=== PATIENT | male | born 1975 | race Caucasian/White ===

== ENCOUNTER → 2017-11-19 12:42 | Outpatient (CLI) | payer MEDICAID, SELFPAY ==
[2017-11-19 13:00] LABS: Basophils # 0.1 K/mm3 (0-0.2); Basophils % 0.5 % (0.1-2.0); Eosinophils # 0.2 K/mm3 (0.0-0.4); Eosinophils % 2.2 % (0.1-12.0); Hematocrit 53.1 % (42.0-52.0); Hemoglobin 17.9 g/dL (14.1-18.0); Lymphocytes # 3.6 K/mm3 (0.7-4.5); Lymphocytes % 37.2 K/mm3 (10-50); Mean Corpuscular HGB Conc 33.7 g/dL (31.8-35.4); Mean Corpuscular Hemoglobin 32.8 pg (27.0-31.2); Mean Corpuscular Volume 97.3 fl (80-94); Mean Platelet Volume 7.7 fl (7.4-10.4); Monocytes # 0.7 K/mm3 (0.1-1.0); Monocytes % 6.7 % (1.7-9.3); Neutrophils # 5.2 K/mm3 (1.8-7.8); Neutrophils % 53.4 % (37.0-80.0); Platelet Count 223 K/mm3 (142-424); Red Blood Count 5.46 M/mm3 (4.60-6.20); Red Cell Distribution Width 13.4 % (11.5-17.5); White Blood Count 9.8 K/mm3 (4.8-10.8)
[2017-11-19 13:18] LABS: Alanine Aminotransferase 75 U/L (12-78); Albumin Level 4.2 gm/dL (3.4-5.0); Albumin/Globulin Ratio 1.1 (1.1-1.8); Alkaline Phosphatase 55 U/L (46-116); Anion Gap 10.5 mEq/L (5-15); Aspartate Amino Transferase 28 U/L (15-37); Bilirubin,Total 0.4 mg/dL (0.2-1.0); Blood Urea Nitrogen 16 mg/dL (7-18); Carbon Dioxide 31 mmol/L (21.0-32.0); Chloride 105 mmol/L (98-107); Creatinine,Serum 1.15 mg/dL (0.70-1.30); Estimated Glomerular Filt Rate 70 ml/min (>60); GFR (African American) 85 ML/MIN (>60); Globulin 3.7 gm/dl (1.3-3.2); Glucose 96 mg/dL (74-106); Magnesium 1.7 mg/dL (1.4-2.2); Potassium 4.5 mmoL/L (3.5-5.1); Sodium 142 mmol/L (136-145); Thyroid Stimulating Hormone 2.92 uIU/ml (0.358-3.740); Total Protein,Serum 7.9 gm/dL (6.4-8.2)
== END ==
PROVIDERS: Visit Provider Internal Medicine Adolescent Medicine
DX: R55 Syncope and collapse (principal)
CPT/HCPCS: 36415; 80053; 83735; 84443; 85025

== ENCOUNTER → 2017-12-02 08:31 | Outpatient (CLI) | payer MEDICAID, SELFPAY ==
--- NOTE | 2017-12-02 08:37 | MR_ITS ---
MR head/brain wo con HISTORY: Severe headache, syncope, at the C dizziness and blurred vision ITS.REASON: SYNCOPE AND COLLAPSE, BAD HEADACHE ORDERING PHYSICIAN: Mariusz Saucedo MD PATIENT AGE: 42 years TECHNIQUE: Standard multiplanar multiecho sequences are performed without contrast. FINDINGS: No midline shift, mass effect, intracranial hemorrhage, hydrocephalus, or acute infarction. No restricted diffusion. The cerebellopontine angles, cerebellum, and brainstem are unremarkable. There are scant T2 white matter hyperintensities nonspecific. The hippocampal gyri have an unremarkable appearance in the temporal horns are symmetric. No mastoid effusion or sinus air-fluid level. There is mucosal thickening in the left frontal sinus. The pituitary optic chiasm and corpus callosum are unremarkable no cerebellar ectopia. IMPRESSION: 1. No acute intracranial finding. Scant T2 white matter hyperintensities nonspecific 2. Left frontal sinus disease
--- NOTE | 2017-12-02 09:15 | XR_ITS ---
XR orbit bilateral min 4V HISTORY: History of metallic foreign body in the eyes. Clearance for MRI needed ITS.REASON: RULE OUT FOREIGN BODY FOR MRI ORDERING PHYSICIAN: Mariusz Saucedo MD PATIENT AGE: 42 years TECHNIQUE: AP views are obtained of the orbits with the patient looking up and down COMPARISON: FINDINGS: No radio opaque foreign bodies evident. IMPRESSION: No radio opaque orbital foreign body identified
== END ==
PROVIDERS: Family Provider Internal Medicine Adolescent Medicine; PCP Internal Medicine Adolescent Medicine; Visit Provider Internal Medicine Adolescent Medicine
DX: R55 Syncope and collapse (principal); R51 Headache
CPT/HCPCS: 70200; 70551; 95816

== ENCOUNTER → 2017-12-09 08:28 | Outpatient (CLI) | payer MEDICAID, SELFPAY | PROVIDERS: PCP Internal Medicine Adolescent Medicine; Visit Provider Internal Medicine Adolescent Medicine | DX: G47.30 Sleep apnea, unspecified (principal) | CPT/HCPCS: 95806 ==

== ENCOUNTER → 2018-04-19 10:38 | Outpatient (CLI) | payer MEDICAID, SELFPAY ==
[2018-04-19 11:52] LABS: Anion Gap 11.3 mEq/L (5-15); Blood Urea Nitrogen 11 mg/dL (7-18); Calcium 8.9 mg/dL (8.5-10.1); Carbon Dioxide 30 mmol/L (21.0-32.0); Chloride 105 mmol/L (98-107); Creatinine,Serum 1.12 mg/dL (0.70-1.30); Estimated Glomerular Filt Rate 73 ml/min (>60); GFR (African American) 88 ML/MIN (>60); Glucose 107 mg/dL (74-106); Potassium 4.3 mmoL/L (3.5-5.1); Sodium 142 mmol/L (136-145)
== END ==
PROVIDERS: PCP Internal Medicine Adolescent Medicine; Visit Provider Internal Medicine Adolescent Medicine
DX: I10 Essential (primary) hypertension (principal)
CPT/HCPCS: 36415; 80048

== ENCOUNTER → 2018-06-01 19:49 | Outpatient (CLI) | payer MEDICAID, SELFPAY ==
--- NOTE | 2018-06-01 19:51 | XR_ITS ---
XR wrist RT min 3V HISTORY ITS.REASON: right wrist pain ORDERING PHYSICIAN: Ulysses Diggs MD PATIENT AGE: 42 years Comparison: None FINDINGS: No acute fracture or dislocation is evident. There is a small calcific density at the distal aspect of the ulna and may be related to an old ulnar styloid process avulsion fracture. This was present on 08/14/2014. Otherwise negative. IMPRESSION: No acute finding. Suspect old fracture of the ulnar styloid process
--- NOTE | 2018-06-01 19:51 | XR_ITS ---
XR wrist LT min 3V HISTORY ITS.REASON: left wrist pain ORDERING PHYSICIAN: Ulysses Diggs MD PATIENT AGE: 42 years Comparison: None FINDINGS: No fracture or dislocation. No lytic or blastic change. There is normal mineralization.. The joint spaces are well-preserved. No significant degenerative/arthritic changes. No erosive changes evident.. IMPRESSION: Negative wrist
== END ==
PROVIDERS: PCP Internal Medicine Adolescent Medicine; Visit Provider Orthopaedic Surgery
DX: M25.532 Pain in left wrist (principal); M25.531 Pain in right wrist
CPT/HCPCS: 73110

== ENCOUNTER → 2018-07-07 09:57 | Outpatient (CLI) | payer MEDICAID, SELFPAY ==
--- NOTE | 2018-07-07 10:11 | XR_ITS ---
XR chest 2V HISTORY: ITS.REASON: COUGH,ANOREXIA ORDERING PHYSICIAN: Mariusz Saucedo MD PATIENT AGE: 42 years COMPARISON: 07/25/2014 FINDINGS: The cardiomediastinal silhouette and pulmonary vascularity are within normal limits. The lungs are clear without infiltrates, suspicious nodules, or pleural effusions. No acute bony abnormalities. IMPRESSION: Negative chest, no acute finding
[2018-07-07 11:36] LABS: Basophils # 0.1 K/mm3 (0-0.2); Basophils % 0.5 % (0.1-2.0); Eosinophils # 0.2 K/mm3 (0.0-0.4); Eosinophils % 2.3 % (0.1-12.0); Hematocrit 49.8 % (42.0-52.0); Hemoglobin 16.4 g/dL (14.1-18.0); Lymphocytes # 3.4 K/mm3 (0.7-4.5); Lymphocytes % 32.3 % (10-50); Mean Corpuscular Hemoglobin 31.6 pg (27.0-31.2); Mean Corpuscular Volume 95.6 fl (80-94); Mean Platelet Volume 7.5 fl (7.4-10.4); Monocytes # 0.7 K/mm3 (0.1-1.0); Neutrophils % 57.9 % (37.0-80.0); Platelet Count 226 K/mm3 (142-424); Red Blood Count 5.21 M/mm3 (4.60-6.20); Red Cell Distribution Width 13.5 % (11.5-17.5); White Blood Count 10.4 K/mm3 (4.8-10.8)
[2018-07-07 13:12] LABS: Alanine Aminotransferase 26 U/L (12-78); Albumin Level 3.9 gm/dL (3.4-5.0); Albumin/Globulin Ratio 1.3 (1.1-1.8); Alkaline Phosphatase 48 U/L (46-116); Anion Gap 13.6 mEq/L (5-15); Aspartate Amino Transferase 13 U/L (15-37); Bilirubin,Total 0.3 mg/dL (0.2-1.0); Blood Urea Nitrogen 16 mg/dL (7-18); Calcium 9.1 mg/dL (8.5-10.1); Carbon Dioxide 31 mmol/L (21.0-32.0); Chloride 103 mmol/L (98-107); Creatinine,Serum 0.94 mg/dL (0.70-1.30); Estimated Glomerular Filt Rate 89 ml/min (>60); Free Thyroxine Index 2.9 ug/dL (5.93-13.13); GFR (African American) 108 ML/MIN (>60); Globulin 3.1 gm/dl (1.3-3.2); Glucose 109 mg/dL (74-106); Potassium 4.6 mmoL/L (3.5-5.1); Sodium 143 mmol/L (136-145); T4 (Thyroxine) 9.2 ug/dl (4.7-13.3); Thyroid Stimulating Hormone 1.25 uIU/ml (0.358-3.740); Triiodothryronine (T3) Uptake 32 % (31-39)
== END ==
PROVIDERS: PCP Internal Medicine Adolescent Medicine; Visit Provider Internal Medicine Adolescent Medicine
DX: R05 Cough (principal); R63.0 Anorexia
CPT/HCPCS: 36415; 71046; 80053; 84436; 84443; 84479; 85025

== ENCOUNTER → 2018-08-30 10:02 | Outpatient (CLI) | payer MEDICAID, SELFPAY ==
[2018-08-30 10:21] LABS: Blood Urea Nitrogen 9 mg/dL (7-18); Calcium 8.5 mg/dL (8.5-10.1); Carbon Dioxide 29 mmol/L (21.0-32.0); Chloride 102 mmol/L (98-107); Creatinine,Serum 1.08 mg/dL (0.70-1.30); Estimated Glomerular Filt Rate 76 ml/min (>60); GFR (African American) 92 ML/MIN (>60); Glucose 110 mg/dL (74-106); Sodium 139 mmol/L (136-145)
--- NOTE | 2018-08-30 12:54 | CT_ITS ---
CT abdomen pelvis wo con CLINICAL INDICATION: Hematuria with bilateral flank pain ITS.REASON: HEMATURIA ORDERING PHYSICIAN: Alexandr Holguin MD PATIENT AGE: 42 years COMPARISON: None TECHNIQUE: Axial images obtained with sagittal and coronal reformats. All CT scans at the facility use one or more dose reduction, viz: automated exposure control, ma/kV adjustment per patient size (including targeted exams where dose is matched to indication, i.e. head), or iterative reconstruction technique. PROCEDURE: Oral Contrast: None IV Contrast: None . FINDINGS: Lung bases are clear. There is a small area of focal fatty infiltration involving the falciform ligament region of the liver. Liver is otherwise unremarkable. The spleen, adrenal glands, pancreas, kidneys, and ureters have an unremarkable appearance. No renal or ureteral calculi or hydronephrosis. No evidence of appendicitis, intestinal obstruction, free air, or diverticulitis. Urinary bladder wall is slightly thickened. This is nonspecific and could be due to nondistention or mild cystitis. No pelvic mass or abnormal fluid collection or focal inflammatory change of the pelvis. No acute bony anomalies. IMPRESSION: 1. Mild thickening in the urinary bladder which could be due to nondistention or cystitis. 2. Otherwise negative CT abdomen pelvis without contrast. No renal or ureteral calculi or hydronephrosis is evident
== END ==
PROVIDERS: Visit Provider Internal Medicine Adolescent Medicine
DX: R31.9 Hematuria, unspecified (principal)
CPT/HCPCS: 36415; 74176; 80048

== ENCOUNTER → 2018-12-20 09:43 | Outpatient (CLI) | payer MEDICAID, SELFPAY ==
--- NOTE | 2018-12-20 09:44 | FL_ITS ---
EXAM: Barium swallow/esophagram. INDICATION: ITS.REASON: dysphagia ORDERING PHYSICIAN: Jeramy Galeas MD PATIENT AGE: 43 years COMPARISON: None TECHNIQUE: In the upright position the patient was observed to swallow barium in both the AP and lateral view. The cervical esophagus was examined under fluoroscopy with images obtained. The patient was then placed prone in the right anterior oblique position and was observed to swallow barium with Valsalva technique . FLUOROSCOPY TIME: 58 seconds FINDINGS: There was no evidence of aspiration. There was normal peristalsis. No filling defects or mucosal abnormalities. No masses or strictures. No hiatal hernia IMPRESSION: Negative barium swallow.
== END ==
PROVIDERS: PCP Internal Medicine Adolescent Medicine; Visit Provider Surgery
DX: R13.14 Dysphagia, pharyngoesophageal phase (principal)
CPT/HCPCS: 74220

== ENCOUNTER → 2019-01-30 12:39 | Outpatient (CLI) | payer MEDICAID, SELFPAY ==
--- NOTE | 2019-01-30 12:41 | FL_ITS ---
FL barium swallow modified: 01/30/2019 12:41 PM CLINICAL HISTORY: Weight loss ORDERING PHYSICIAN: Jeramy Galeas MD PATIENT AGE: 43 years Comparison: None TECHNIQUE: Patient administered varying consistencies of barium contrast, while viewed in lateral position under real-time fluoroscopy with cine recording. FLUOROSCOPY TIME: 1 minute and 57 seconds The study was performed in conjunction with speech pathologist. Please see that report & recommendations. FINDINGS: Patient was given varying consistencies of barium. No abnormality in swallowing mechanism noted IMPRESSION: Unremarkable modified barium swallow Please see speech pathologist report and recommendations.
--- NOTE | 2019-01-30 13:56 | HMH.SLMBS2 ---
Speech & Language Evaluation Speech/Language Mod Barium Swallow Start: 01/30/19 13:35 Freq: once Status: Complete Protocol: Document 01/30/19 13:35 WENDY (Rec: 01/30/19 13:56 WENDY [id number]) MBS Recommendations Diet Dietary Recommendations Regular,Mechanical Soft,Thin Liquids Treatment/Strategies Strategy/Precaution Recommend Alternate Liquids/Solids Referrals/Other Recommended Referrals GI Consult,Dental Evaluation, Dietary Consult,ENT Consult Other Recommendations Recommend referral to psychological services specializing in eating disorder and aversion to food. Mod Barium Swallow Impressions Summary and Impressions Oral Phase Impression Minimal Impairment Oral Phase Summary No Teeth Pharyngeal Phase Impression No Impairment (WFL) Speech/Language MBS Assessment/Goals/Plan Assessment Date of Evaluation: 01/30/19 Evaluation Type Initial Certification Assessment/Problems Patient reports major weight loss and aversion to food. He reports the sensation that food is stuck in his throat. Does Patient Qualify for Service No Qualify/Failure Comment No aspiration or penetration was observed in MBS. All structure and function were within functional limits. Recommendations PHYSICIAN CERTIFICATION: The specified therapy services are required, authorized, and reviewed every 30 days. Diet Recommendations Normal Liquid Type Recommendations Normal/Thin SL Swallow Guidelines Standard Aspiration Prec. Dysphagia Swallow Precautions/Strategies Sitting Upright (90 deg), Alternate Liquids/Solids Additional Consults Recommended Nutritional Consult Comment Recommend referral to psychological services that specialize in anxiety and eating disorders. Plan Pt/Guardian verbally ack understanding Yes of dx/prognosis/goals Pt/Guardian verbally ack understanding Yes of/consent to tx prog G -code Required No Education Instructions provided Patient informed of MBS results and strategy of alternating bites and sips. Pt/Caregiver able to recall information Able to recall/restate Reinforcement needed No Mod Barium Swallow Setup Exam Setup Radiologist Guillermo Smith Level of Consciousness Awake,Alert,Appropriate Position (degrees) 90 Mod Barium Swallo
== END ==
PROVIDERS: PCP Internal Medicine Adolescent Medicine; Visit Provider Surgery
DX: R13.10 Dysphagia, unspecified (principal)
CPT/HCPCS: 70371; 92611

== ENCOUNTER → 2019-05-03 10:17 | Outpatient (CLI) | payer MEDICAID, SELFPAY ==
[2019-05-03 10:57] LABS: Basophils # 0.1 K/mm3 (0-0.2); Basophils % 0.6 % (0.1-2.0); Eosinophils # 0.3 K/mm3 (0.0-0.4); Eosinophils % 2.2 % (0.1-12.0); Hematocrit 51.4 % (42.0-52.0); Hemoglobin 17.3 g/dL (14.1-18.0); Lymphocytes # 3.7 K/mm3 (0.7-4.5); Lymphocytes % 30.3 % (10-50); Mean Corpuscular HGB Conc 33.6 g/dL (31.8-35.4); Mean Corpuscular Hemoglobin 32.9 pg (27.0-31.2); Mean Corpuscular Volume 97.9 fl (80-94); Mean Platelet Volume 7.3 fl (7.4-10.4); Monocytes # 0.9 K/mm3 (0.1-1.0); Monocytes % 7.2 % (1.7-9.3); Neutrophils # 7.3 K/mm3 (1.8-7.8); Neutrophils % 59.7 % (37.0-80.0); Platelet Count 234 K/mm3 (142-424); Red Blood Count 5.25 M/mm3 (4.60-6.20); Red Cell Distribution Width 13.3 % (11.5-17.5); White Blood Count 12.2 K/mm3 (4.8-10.8)
[2019-05-03 12:28] LABS: Alanine Aminotransferase 21 U/L (12-78); Albumin Level 4.1 gm/dL (3.4-5.0); Albumin/Globulin Ratio 1.3 (1.1-1.8); Alkaline Phosphatase 42 U/L (46-116); Anion Gap 13.6 mEq/L (5-15); Aspartate Amino Transferase 14 U/L (15-37); Bilirubin,Total 0.3 mg/dL (0.2-1.0); Blood Urea Nitrogen 16 mg/dL (7-18); Calcium 8.9 mg/dL (8.5-10.1); Carbon Dioxide 28 mmol/L (21.0-32.0); Chloride 105 mmol/L (98-107); Creatinine,Serum 0.89 mg/dL (0.70-1.30); Estimated Glomerular Filt Rate 94 ml/min (>60); GFR (African American) 114 ML/MIN (>60); Globulin 3.1 gm/dl (1.3-3.2); Glucose 98 mg/dL (74-106); Potassium 4.6 mmoL/L (3.5-5.1); Sodium 142 mmol/L (136-145); Thyroid Stimulating Hormone 2.03 uIU/ml (0.358-3.740); Total Protein,Serum 7.2 gm/dL (6.4-8.2)
[2019-05-04 07:20] LABS: Vitamin B12 1523 pg/mL (232-1245)
== END ==
PROVIDERS: Visit Provider Internal Medicine Adolescent Medicine
DX: G60.9 Hereditary and idiopathic neuropathy, unspecified (principal); E53.8 Deficiency of other specified B group vitamins
CPT/HCPCS: 36415; 80053; 82607; 84443; 85025

== ENCOUNTER → 2019-06-27 13:19 | Outpatient (CLI) | payer BC, SELFPAY ==
--- NOTE | 2019-06-27 13:27 | XR_ITS ---
PROCEDURE: XR WRIST LT MIN 3V CLINICAL INDICATION: CARPAL TUNNER SYNDROME The COMPARISON: WRISTCMLT XR wrist LT min 3V from 06/01/2018 WRISTCMRT XR wrist RT min 3V from 06/01/2018 FINDINGS: No fracture, dislocation, lytic change, or blastic change evident. No significant degenerative change IMPRESSION: No acute findings. Dictated by: Guillermo Smith MD 06/27/2019 14:01 Electronically signed by Guillermo Smith MD in [place] 06/27/2019 14:01
--- NOTE | 2019-06-27 13:27 | XR_ITS ---
PROCEDURE: XR WRIST RT MIN 3V CLINICAL INDICATION: CARPAL TUNNER SYNDROME Pain COMPARISON: WRISTCMLT XR wrist LT min 3V from 06/01/2018 WRISTCMRT XR wrist RT min 3V from 06/01/2018 FINDINGS: No fracture or dislocation. No significant degenerative change. There is a small well-circumscribed calcific density medial to the triquetrum not significantly changed. IMPRESSION: No change with no acute finding Dictated by: Guillermo Smith MD 06/27/2019 13:57 Electronically signed by Guillermo Smith MD in [place] 06/27/2019 13:57
== END ==
PROVIDERS: PCP Internal Medicine Adolescent Medicine; Visit Provider Plastic Surgery Surgery of the Hand
DX: G56.00 Carpal tunnel syndrome, unspecified upper limb (principal)
CPT/HCPCS: 73110

== ENCOUNTER → 2019-07-23 16:08 | Outpatient (CLI) | payer BC, SELFPAY ==
--- NOTE | 2019-07-23 16:17 | XR_ITS ---
PROCEDURE: XR ORBIT BILATERAL MIN 4V CLINICAL INDICATION: R/O FOREIGN BODY IN EYE, patient scheduled for MRI exam this coming week, previous history of possible metallic foreign body COMPARISON: Multiple view show the orbital rims and orbital floors are intact. The paranasal sinuses appear clear. There are no metallic bodies seen within the orbits or in the adjacent soft tissues of the face or scalp. FINDINGS: Negative for foreign body IMPRESSION: No acute findings. Dictated by: Dr. Nikolai Suero MD 07/23/2019 17:[address] Nikolai Suero MD in [place] 07/23/2019 17:50
== END ==
PROVIDERS: PCP Internal Medicine Adolescent Medicine; Visit Provider Plastic Surgery Surgery of the Hand
DX: T15.90XA Foreign body on external eye, part unspecified, unspecified eye, initial encounter (principal)
CPT/HCPCS: 70200

== ENCOUNTER → 2019-07-25 14:04 | Outpatient (CLI) | payer BC, SELFPAY ==
--- NOTE | 2019-07-25 14:13 | MR_ITS ---
PROCEDURE: MR WRIST RT WO CON CLINICAL INDICATION: CUBITAL TUNNEL SYNDROME, BILATERAL, TFCC TEAR COMPARISON: No exams were available for comparison TECHNIQUE: Routine multiplanar multi echo sequences are performed without gadolinium enhancement. FINDINGS: Examination of the triangular fibrocartilage is very limited without intra-articular contrast. The central aspect of the TFC and fovea component are unremarkable. The the ulnar styloid attachment of the TFC is not identified and could be torn. There is a small amount of bone marrow edema involving the distal aspect of the ulna laterally at the distal radial ulnar joint. Small amount fluid is present along the proximal aspect of the DRUJ. The ulnar styloid process has more of a dorsal location with the extensor carpi ulnaris tendon located more dorsally and normal. No fracture or dislocation. IMPRESSION: 1. There is a small amount edema at the distal aspect of the ulna along its radial and dorsal aspect with minimal amount of fluid in the distal radial ulnar joint. 2. Evaluation of the triangular fibrocartilage is limited without direct or even indirect arthrography. The ulnar styloid attachment is not identified and may be torn. Consider follow-up exam with thin sections with at least indirect arthrography for confirmation. Imaging on 3 T unit would also be more desirable. Dictated by: Guillermo Smith MD 07/29/2019 09:27 Electronically signed by Guillermo Smith MD in [place] 08/01/2019 07:03
== END ==
PROVIDERS: PCP Internal Medicine Adolescent Medicine; Visit Provider Plastic Surgery Surgery of the Hand
DX: G56.23 Lesion of ulnar nerve, bilateral upper limbs (principal)
CPT/HCPCS: 73221

== ENCOUNTER → 2019-09-13 14:25 | Outpatient (CLI) | payer BC, SELFPAY ==
--- NOTE | 2019-09-13 14:33 | MR_ITS ---
PROCEDURE: MR CERVICAL SPINE WO CON CLINICAL INDICATION: CERVICAL AND THORACIC NEURALGIA COMPARISON: No exams were available for comparison TECHNIQUE: Standard multiplanar multiecho sequences are performed without contrast. 3-D MIP and myelographic images are also rendered and reviewed FINDINGS: Cervical vertebrae are of normal height and alignment. There is no malignant bone marrow signal. Cerebellar tonsils are in anatomic position. At C3-4 there is disc osteophyte complex with broad-based disc extrusion. There is moderate extrinsic mass compression of the thecal sac with central spinal canal stenosis and there is spinal cord contour deformity/compression. Foraminal stenoses left greater than right are also noted. No spinal cord signal abnormality is apparent. At C5-6 broad-based disc bulge is noted with mild convex extrinsic mass effect on the thecal sac. No central canal or foraminal stenosis is apparent. Remaining disc spaces have a normal appearance. IMPRESSION: High-grade central spinal canal stenosis with spinal cord compression due to large disc extrusion and C3 osteophyte at C3-4. Dictated by: Papa Mckeon 09/13/2019 16:20 Electronically signed by Papa Mckeon in [place] 09/13/2019 16:20
--- NOTE | 2019-09-13 14:33 | MR_ITS ---
PROCEDURE: MR THORACIC SPINE WO CON CLINICAL INDICATION: CERVICAL AND THORACIC NEURALGIA COMPARISON: No exams were available for comparison TECHNIQUE: Routine multiplanar multisequence exam FINDINGS: There is no acute fracture or dislocation. A sub centimeter benign appearing lipoma is noted T5. No malignant bone marrow signal is apparent. At T3-4 a small left paracentral disc herniation is noted causing mild convex extrinsic mass effect on the thecal sac. At T4-5 a left central disc herniation is noted causing convex mass effect on the thecal sac. At T5-6 moderate sized central disc herniation is noted appearing to contact the spinal cord. There is some spinal cord contour deformity without entrapment. At T8-9 a right paracentral disc herniation is noted appearing to contact the spinal cord. Remaining disc spaces have a normal appearance. No intrinsic spinal cord abnormality is apparent. IMPRESSION: Multilevel degenerative disc disease as described with disc herniations largest one at T5-6. Dictated by: Papa Mckeon 09/13/2019 16:29 Electronically signed by Papa Mckeon in [place] 09/13/2019 16:29
== END ==
PROVIDERS: PCP Internal Medicine Adolescent Medicine; Visit Provider Internal Medicine Adolescent Medicine
DX: M54.12 Radiculopathy, cervical region (principal); M79.2 Neuralgia and neuritis, unspecified
CPT/HCPCS: 72141; 72146; 76376

== ENCOUNTER → 2019-10-13 09:20 | Outpatient (CLI) | payer BC, SELFPAY ==
--- NOTE | 2019-10-13 09:32 | XR_ITS ---
PROCEDURE: XR WRIST RT MIN 3V CLINICAL INDICATION: BILAT WRIST PAIN COMPARISON: WRISTCMLT XR wrist LT min 3V from 06/01/2018 WRISTCMRT XR wrist RT min 3V from 06/01/2018 XR WRIST RT MIN 3V from 06/27/2019 XR WRIST LT MIN 3V from 06/27/2019 FINDINGS: There is no acute fracture dislocation or destructive lesion. A well corticated bone density 5 millimeters adjacent to the triquetral is likely an accessory ossicle. Old healed fracture of 5th metacarpal is apparent. IMPRESSION: No acute findings. Dictated by: Papa Mckeon 10/13/2019 10:27 Electronically signed by Papa Mckeon in [place] 10/13/2019 10:27
--- NOTE | 2019-10-13 09:32 | XR_ITS ---
PROCEDURE: XR WRIST LT MIN 3V CLINICAL INDICATION: BILAT WRIST PAIN COMPARISON: WRISTCMLT XR wrist LT min 3V from 06/01/2018 WRISTCMRT XR wrist RT min 3V from 06/01/2018 XR WRIST RT MIN 3V from 06/27/2019 XR WRIST LT MIN 3V from 06/27/2019 FINDINGS: There is an approximately 4 millimeter degenerative subchondral cyst of the distal ulna. Radiocarpal joint space is relatively preserved. No fracture or dislocation is apparent. 3 millimeter sclerotic focus in the capitate is likely a benign bone island. IMPRESSION: No acute findings. Dictated by: Papa Mckeon 10/13/2019 10:25 Electronically signed by Papa Mckeon in [place] 10/13/2019 10:25
== END ==
PROVIDERS: PCP Internal Medicine Adolescent Medicine
DX: M25.532 Pain in left wrist (principal); M25.531 Pain in right wrist
CPT/HCPCS: 73110

== ENCOUNTER → 2019-12-08 15:15 | Outpatient (CLI) | payer BC, SELFPAY ==
--- NOTE | 2019-12-08 15:21 | XR_ITS ---
PROCEDURE: XR CERVICAL SPINE 5V CLINICAL INDICATION: NECK PAIN,S/P FALL,S/P CERVICAL FUSION Posttraumatic pain COMPARISON: No exams were available for comparison FINDINGS: There has been prior anterior cervical disc fusion at C3-C4 with a disc spacer device at that level. There is normal alignment with no acute fracture or dislocation. No lytic or blastic change. IMPRESSION: Prior anterior cervical disc fusion at C3-C4 with good alignment otherwise negative Dictated by: Guillermo Smith MD 12/08/2019 16:16 Electronically signed by Guillermo Smith MD in [place] 12/08/2019 16:16
== END ==
PROVIDERS: PCP Internal Medicine Adolescent Medicine; Visit Provider Physician Assistant Medical
DX: M54.2 Cervicalgia (principal); Z98.1 Arthrodesis status; Z91.81 History of falling
CPT/HCPCS: 72050

== ENCOUNTER → 2020-01-10 14:51 | Outpatient (CLI) | payer BC, SELFPAY ==
--- NOTE | 2020-01-10 14:54 | MR_ITS ---
PROCEDURE: MR LUMBAR SPINE WO CON CLINICAL INDICATION: LOW BACK PAIN, BILATERAL LOWER EXTREMITY PAIN Low back pain with bilateral leg pain numbness and tingling, right buttock pain COMPARISON: MR CERVICAL SPINE WO CON from 09/13/2019 TECHNIQUE: Standard multiplanar multiecho sequences are performed without contrast. 3-D MIP and myelographic images are also rendered and reviewed FINDINGS: There is normal alignment. The spinal cord ends at the T12-L1 level. No disc herniation canal stenosis or extruded herniated disc evident. There is minimal facet ligamentum hypertrophy at L3-L4 and L4-5. No significant foraminal narrowing. There is minimal bulging disc at L4-5 eccentric toward the right with mild right-sided foraminal narrowing and minimal right lateral recess narrowing IMPRESSION: Mild bulging disc L4-5 eccentric toward the right with mild right lateral recess and foraminal narrowing with mild facet ligamentum hypertrophy. No disc herniation or canal stenosis or other significant anomaly Dictated by: Guillermo Smith MD 01/11/2020 11:40 Electronically signed by Guillermo Smith MD in [place] 01/11/2020 11:40
== END ==
PROVIDERS: PCP Internal Medicine Adolescent Medicine; Visit Provider Neurological Surgery
DX: M54.5 Low back pain (principal); M79.605 Pain in left leg; M79.604 Pain in right leg
CPT/HCPCS: 72148; 76376

== ENCOUNTER → 2020-01-16 09:34 | Outpatient (POV) | payer BC, SELFPAY ==
[2020-01-16 09:43] VITALS: BMI 28.5
--- NOTE | 2020-01-16 12:46 | HMH.PMCON ---
Assessment and Plan (1) Cervical postlaminectomy syndrome Current visit: Yes Status: Chronic Category: Medical Code(s): M96.1 - Postlaminectomy syndrome, not elsewhere classified (2) Degenerative joint disease (DJD) of lumbar spine Current visit: Yes Status: Chronic Category: Medical Code(s): M47.816 - Spondylosis without myelopathy or radiculopathy, lumbar region - Assessment and plan all Dx Assessment and Plan for all problems:: We will send the patient [employer] through the mail. We will follow-up with him in 1 week reassess his symptoms. We will also at that time answer any questions he may have in regards to a neurostimulator. Dr. Mccord has reviewed this note and agrees with this plan of care. This note was dictated using voice recognition software and may contain errors or omissions this encounter was performed as a telemedicine visit via secure 2 way video and audio to minimize risk and transmission of Covid-19. The patient and we understand the limitations of a telemedicine visit including inability to check reflexes, possibly missing subtle findings on physical exam. Alternative options were presented to the patient and the patient elected to proceed with the visit. We specifically discussed risk factors for Covid-19 including age, heart or lung disease, diabetes, immunosuppression and travel. We also discussed that NSAIDs may worsen Covid-19 infection symptoms and that they should not be used to treat Covid-19 symptoms. Patient was also informed that corticosteroids in any form oral or injectable will decrease immune response and may increase risk of Covid-[address] Mccord has reviewed this patient's chart and this note and agrees with plan of care. Patient has been instructed to call the office if they have any issues prior to the next appointment. HPI - Data of Consult Consult date: 01/16/20 Requesting Physician: Amber Castro APRN Primary Care Provider: Referral Provider, MD - Consult Narrative Reason for consult: Neck pain, back pain History of present illness: Mr. William is a 44 year old male who presents today for consultation in regards to his neck and low back pain. This is a telehealth visit. He is given consent in regards to this. Patient has had pain for many years. Patient has recently had a cervical laminectomy. He is not had much relief with his pain. He does have an MRI showing a low back bulging disks. He states his whole spine needs fixed. Patient will not does not want to be on oral narcotic medication and given his age that is appropriate. Patient has numbness and tingling bilateral lower and upper extremities. Patient has difficulty with sitting standing walking and laying down for more than 30 minutes. Patient and I had a discussion in regards to treatments. He is tried multiple treatments in the past. We did discuss a neurostimulator. CC: Amber Castro APRN [facility] History I have reviewed the patient's past medical history: Yes Medical History: Reports:: Anxiety, Depression, Gastroesophageal Reflux Disease(GERD), Hypertension Denies:: Cancer, Diabetes Mellitus Type 1, Diabetes Mellitus Type 2, Internal Pacemaker, Lung Disease, MRSA, Seizures *Have you ever received a pneumonia vaccine?: Yes *Have you received a flu vaccine this season?: Yes Other Medical History: Reports: Other. Denies: Blood Transfusion Reaction Laterality Cases: Bilateral: Carpal Tunnel Release, Tonsillectomy Other Surgeries: Yes: EGD, Other. No: Pacemaker Amputation: No - *Social History Smoking Status: Current every day smoker Tobacco Type: cigarettes # Packs/Day (cigarettes): 1 #Yrs smoked (if former smoker): 30 Alcohol Intake: never Substance Use Type: denies use *Occupational Status:: other Housing: house Household Members: other *Travel in the last 8 weeks: None - Psychiatric History Pschychiatric History:: Reports:: Anxiety, Depression Family Hx::
== END ==
PROVIDERS: Visit Provider Clinical Nurse Specialist Family Health
DX: M96.1 Postlaminectomy syndrome, not elsewhere classified (principal); M47.816 Spondylosis without myelopathy or radiculopathy, lumbar region
CPT/HCPCS: 99202

== ENCOUNTER → 2020-01-30 11:28 | Outpatient (POV) | payer BC, SELFPAY ==
[2020-01-30 12:14] VITALS: BP 154/98; PULSE 87; RESP 18; TEMP 36.6; O2SAT 99; BMI 29.1
--- NOTE | 2020-01-30 12:55 | HMH.PAINSOAP ---
[facility] Pain Management SOAP Note Subjective:: Patient is a very pleasant 44-year-old white male who presents today to discuss a neurostimulator. Patient has neck and low back pain. He has had this pain for many years he has had a cervical laminectomy which did not give him any pain relief and actually increase his pain. He rates his pain today an 8 out of 10. He has an MRI showing low back degeneration along with bulging disks. Patient does not want oral narcotic medication given his age that is an appropriate request. Patient has numbness and tingling in bilateral lower and upper extremities here. He has difficulty with standing sitting walking and laying down for more than 30 minutes. Patient has reviewed the information in regards to [employer] neurostimulator. He would like to pursue this. He is tried and failed injective therapies, physical therapy, other conservative therapies. ROS General: no recent weight change, no fever, no sleep disturbances Respiratory: no cough, no shortness of air, no recurring pulmonary infections Cardiovascular/Peripheral Vascular: No chest pain, No palpitations, no edema, no shortness of breath. Gastrointestinal: no new onset incontinence, normal bowel movements reported Genitourinary: no new onset incontinence Musculoskeletal: Neck pain, back pain, arm pain, leg pain Psychiatric: Chronic depression Neurological: [denies new onset weakness in extremities], [denies new onset balance issues] Objective:: Physical Exam General: Alert and oriented x3, no acute distress, pleasant and cooperative, [on room air] Lungs: Resps E/U, Symmetrical chest expansion, Eyes: PERRL Musculoskeletal: Flexion and extension of lumbar cervical spine somewhat guarded secondary to pain, strength in upper and lower extremities [5/5], [abnormal gait noted] Neurological: speech clear, 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 If he is we will move forward with a [employer] neurostimulator trial. Patient is not on any anticoagulation therapy. If he is an appropriate candidate for a neurostimulator trial we will move forward with this. We will utilize [employer]. He has been instructed to call the office if he has any issues prior to his next appointment. Dr. Mccord has reviewed this note and agrees with this plan of care. This note was dictated using voice recognition software and may contain errors or omissions [facility] History I have reviewed the patient's past medical history: Yes Medical History: Reports:: Anxiety, Depression, Gastroesophageal Reflux Disease(GERD), Hypertension Denies:: Cancer, Diabetes Mellitus Type 1, Diabetes Mellitus Type 2, Internal Pacemaker, Lung Disease, MRSA, Seizures *Have you ever received a pneumonia vaccine?: Yes *Have you received a flu vaccine this season?: Yes Other Medical History: Reports: Other. Denies: Blood Transfusion Reaction Laterality Cases: Bilateral: Carpal Tunnel Release, Tonsillectomy Other Surgeries: Yes: EGD, Other. No: Pacemaker Amputation: No - *Social History Smoking Status: Current every day smoker Tobacco Type: cigarettes # Packs/Day (cigarettes): 1 #Yrs smoked (if former smoker): 30 Alcohol Intake: never Substance Use Type: denies use *Occupational Status:: other Housing: house Household Members: other *Travel in the last 8 weeks: None - Psychiatric History Pschychiatric History:: Reports:: Anxiety, Depression Family Hx:: Unable to obtain
== END ==
PROVIDERS: PCP Internal Medicine Adolescent Medicine; Visit Provider Clinical Nurse Specialist Family Health
DX: M96.1 Postlaminectomy syndrome, not elsewhere classified (principal); M51.16 Intervertebral disc disorders with radiculopathy, lumbar region
CPT/HCPCS: 99212

== ENCOUNTER → 2020-05-06 12:44 | Outpatient (POV) | payer BC, SELFPAY ==
[2020-05-06 13:04] VITALS: BP 157/94; PULSE 77; RESP 18; O2SAT 98; BMI 34.9
--- NOTE | 2020-05-06 13:44 | HMH.PAINSOAP ---
[facility] Pain Management SOAP Note Subjective:: Is a pleasant 44-year-old white male who presents today for follow-up after a neurostimulator trial denial. Patient has had pain for over 15 years. He has had a cervical postlaminectomy syndrome which resulted and CRPS of his upper extremities. He has swelling, color changes, allodynia. Patient has had 4 stellate ganglion blocks with no success. He is unable to tolerate oral medications. 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 Patient has tried and failed facet joint injections, epidural injections. Patient has numbness and tingling in all extremities. He has difficulty standing sitting walking lying down he has difficulty holding things grasping things or raising his arms. Patient and I have discussed a [employer] neurostimulator. He would like to pursue this. He has an appropriate psychological evaluation. Patient is not on any anticoagulation therapy. ROS General: no recent weight change, no fever, no sleep disturbances Respiratory: no cough, no shortness of air, no recurring pulmonary infections Cardiovascular/Peripheral Vascular: No chest pain, No palpitations, no edema, no shortness of breath. Gastrointestinal: no new onset incontinence, normal bowel movements reported Genitourinary: no new onset incontinence Musculoskeletal: Neck pain, arm pain, back pain Psychiatric: normal mood/ affect, Neurological: Weakness in all extremities, [denies new onset balance issues] Objective:: Physical Exam General: Alert and oriented x3, no acute distress, pleasant and cooperative, [on room air] Lungs: Resps E/U, Symmetrical chest expansion, Eyes: PERRL Musculoskeletal: Flexion and extension of cervical and lumbar spine somewhat guarded secondary to pain, deep tendon reflexes normal, strength in upper and lower extremities [5/5], [abnormal gait noted] Neurological: 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 Patient is not on any anticoagulation therapy. He may be a candidate for a lower system at some point. Patient has appropriate psychological evaluation. I will follow-up with him after this reassess his symptoms and time he has been instructed to call the office if he has any issues prior to his next appointment. Dr. Mccord has reviewed this note and agrees with this plan of care. This note was dictated using voice recognition software and may contain errors or omissions [facility] History I have reviewed the patient's past medical history: Yes Medical History: Reports:: Anxiety, Depression, Gastroesophageal Reflux Disease(GERD), Hypertension Denies:: Cancer, Diabetes Mellitus Type 1, Diabetes Mellitus Type 2, Internal Pacemaker, Lung Disease, MRSA, Seizures *Have you ever received a pneumonia vaccine?: Yes *Have you received a flu vaccine this season?: Yes Other Medical History: Reports: Other. Denies: Blood Transfusion Reaction Laterality Cases: Bilateral: Carpal Tunnel Release, Tonsillectomy Other Surgeries: Yes: EGD, Other. No: Pacemaker Amputation: No - *Social History Smoking Status: Current every day smoker Tobacco Type: cigarettes # Packs/Day (cigarettes): 1 #Yrs smoked (if former smoker): 30 Alcohol Intake: never Substance Use Type: denies use *Occupational Status:: other Housing: house Household Members: other *Travel in the last 8 weeks: None - Psychiatric History Pschychiatric History:: Reports:: Anxiety, Depression Family Hx:: Unable to obtain
== END ==
PROVIDERS: PCP Internal Medicine Adolescent Medicine; Visit Provider Clinical Nurse Specialist Family Health
DX: M50.10 Cervical disc disorder with radiculopathy, unspecified cervical region (principal); M51.36 Other intervertebral disc degeneration, lumbar region; M96.1 Postlaminectomy syndrome, not elsewhere classified
CPT/HCPCS: 99212

== ENCOUNTER → 2020-06-20 09:30 | Outpatient (CLI) | payer BC, SELFPAY ==
[2020-06-20 10:31] LABS: Basophils # 0.1 K/mm3 (0-0.2); Basophils % 0.9 % (0.1-2.0); Eosinophils # 0.2 K/mm3 (0.0-0.4); Hematocrit 51.9 % (42.0-52.0); Hemoglobin 17.9 g/dL (14.1-18.0); Lymphocytes # 3.2 K/mm3 (0.7-4.5); Lymphocytes % 28.9 % (10-50); Mean Corpuscular HGB Conc 34.5 g/dL (31.8-35.4); Mean Corpuscular Hemoglobin 32.8 pg (27.0-31.2); Mean Corpuscular Volume 95.1 fl (80-94); Mean Platelet Volume 8.3 fl (7.4-10.4); Monocytes # 0.8 K/mm3 (0.1-1.0); Monocytes % 7.3 % (1.7-9.3); Neutrophils # 6.7 K/mm3 (1.8-7.8); Neutrophils % 60.8 % (37.0-80.0); Platelet Count 221 K/mm3 (142-424); Red Blood Count 5.46 M/mm3 (4.60-6.20); Red Cell Distribution Width 13.2 % (11.5-17.5)
[2020-06-20 11:16] LABS: Chloride 105 mmol/L (98-107); Potassium 4.4 mmoL/L (3.5-5.1); Sodium 140 mmol/L (136-145)
[2020-06-20 11:19] LABS: Anion Gap 15.4 mEq/L (5-15); Blood Urea Nitrogen 17 mg/dl (9-20); Carbon Dioxide 24 mmol/L (22.0-30.0); Estimated Glomerular Filt Rate 93 ml/min (>60); GFR (African American) 112 ML/MIN (>60)
[2020-06-20 11:20] LABS: Calcium 8.9 mg/dl (8.4-10.2); Glucose 124 mg/dl (74-100)
[2020-06-20 14:21] LABS: Coronavirus 19 IgG Antibody Negative (Negative); Coronavirus 19 IgM Antibody Negative (Negative)
== END ==
PROVIDERS: Visit Provider Anesthesiology
DX: Z01.818 Encounter for other preprocedural examination (principal); M51.36 Other intervertebral disc degeneration, lumbar region
CPT/HCPCS: 36415; 80048; 85025; 86328

== ENCOUNTER 2020-06-21 08:49 | Day surgery (SDC) | payer BC, SELFPAY ==
[2020-05-21 10:51] VITALS: BMI 31.1
[2020-06-21] VITALS (8 sets, daily range): BP systolic 115–153; BP diastolic 72–99; PULSE 59–72; RESP 18; TEMP 36.2–36.4; O2SAT 93–98
--- NOTE | 2020-06-21 11:25 | HMH.OPNOTE ---
Date of procedure: 06/21/20 Pre-op Diagnosis:: Degenerative disc disease of lumbar spine with lumbar radiculopathy symptoms with postlaminectomy syndrome of the cervical spine with cervical radiculopathy symptoms Post-op Diagnosis:: Same Procedure performed:: Spinal cord stimulator trial with epidural lead placement x2 Surgeon:: Nghia Mccord MD HUMAN [employer]OURCES OPERATIONS COORDINATOR:: Sal Sagastume Anesthesia: MAC Estimated blood loss (mL): 1 Clinical Note:: This patient is a pleasant 44-year-old white male who we are treating for neck pain and low back pain with radicular symptoms. He has pain in both areas however today most of his pain is in the low back radiating down both legs. Patient has failed all previous conservative therapy including injections, oral medications and physical therapy. He is not a candidate for any further surgery. He presents for spinal cord stimulator trial today. He has had a successful psychological evaluation. Operative findings:: None Operative note:: Informed consent was obtained and the risk and benefits of the procedure were explained to the patient. The patient was taken to the operating room placed prone on the procedure table. She was prepped and draped in sterile fashion. C-arm fluoroscopy was used to view the lumbar spine. The skin and subcutaneous tissues were anesthetized using lidocaine. I placed a 18-gauge spinal needle into the L3-L4 interspace. After confirmation of needle placement in the epidural space a stimulating lead was inserted and advanced very easily to the T7-T8-T9 vertebral body. Lead placement was checked in AP and lateral views. A second needle was then inserted and advanced again into the L2-L3 interspace. Again after confirmation of needle placement in the epidural space a stimulating lead was inserted and advanced again very easily to the T7-T8-T9 vertebral body. Lead placement again was checked in AP and lateral views. The stylets and needles were removed. The leads were secured in place. The patient was taken recovery in stable condition. Patient tolerated the procedure well with no complications. Patient was programmed by the [employer] with a paresthesia free fast program. Patient was discharged home neurologically tired with good relief of pain symptoms. Plan and disposition: We will follow-up with this patient in 3 days for reprogramming. We will follow-up in 1 week for lead pull. If patient has any problems or questions he is to call us back in the pain clinic. Condition: stable Disposition: PACU Complications:: None
--- NOTE | 2020-06-21 13:20 | HMH.ANESCL ---
[facility] Anesthesia Checklist - Patient Identification Patient Identification: Arm Band - Structural Data Admitted From: Home Planned Operative Procedure/s: Placement of Neurostimulator Trial under Fluoroscopy Consent for Planned Operative Procedure(s) Verified: Yes Verified Documents: Surgical Consent, History and Physical - NPO Status Verified Time NPO: 00:00 - Additional verifications Anesthesia Reactions: No Hx Blood Transfusions: No Blood Transfusion Reaction: No - Airway Assessment C-Spine Mobility Assessed: Yes (mp2) TMJ Mobility Assessed: Yes Dentition: Edentulous - Neurological Assessment Level of Consciousness: Awake, Alert - Anesthesia Plan Anesthesia Risk discussed: Yes Anesthesia Plan: Verified ASA Class: III Anesthesia Type: MAC [facility] History I have reviewed the patient's past medical history: Yes Medical History: Reports:: Anxiety, Depression, Gastroesophageal Reflux Disease(GERD), Hypertension Denies:: Cancer, Diabetes Mellitus Type 1, Diabetes Mellitus Type 2, Internal Pacemaker, Lung Disease, MRSA, Seizures *Have you ever received a pneumonia vaccine?: Yes *Have you received a flu vaccine this season?: Yes Other Medical History: Reports: Other. Denies: Blood Transfusion Reaction Anesthesia experience/problems:: nac Laterality Cases: Bilateral: Carpal Tunnel Release, Tonsillectomy Other Surgeries: Yes: EGD, Other. No: Pacemaker Amputation: No Fractures: Yes - *Social History Last grade of school completed: 11th or 12th Smoking Status: Current every day smoker Tobacco Type: cigarettes # Packs/Day (cigarettes): 1 #Yrs smoked (if former smoker): 30 Alcohol Intake: never Substance Use Type: denies use *Occupational Status:: other Housing: house Household Members: other *Travel in the last 8 weeks: None - Psychiatric History Pschychiatric History:: Reports:: Anxiety, Depression Family Hx:: Unable to obtain
== END 2020-06-21 13:15 | disposition home or self-care (01) ==
LOC: OR 08:51
PROVIDERS: PCP Internal Medicine Adolescent Medicine; Visit Provider Anesthesiology
PROC: (CPT 63650; principal; 2020-06-21 10:45)
DX: M51.16 Intervertebral disc disorders with radiculopathy, lumbar region (principal); M96.1 Postlaminectomy syndrome, not elsewhere classified; M50.10 Cervical disc disorder with radiculopathy, unspecified cervical region; I10 Essential (primary) hypertension; F41.9 Anxiety disorder, unspecified; K21.9 Gastro-esophageal reflux disease without esophagitis; N40.0 Benign prostatic hyperplasia without lower urinary tract symptoms; Z88.8 Allergy status to other drugs, medicaments and biological substances; Z79.899 Other long term (current) drug therapy
CPT/HCPCS: 63650 ×2; 96374; C1778; J3370

== ENCOUNTER → 2020-06-27 14:18 | Outpatient (POV) | payer BC, SELFPAY ==
[2020-06-27 15:44] VITALS: BP 142/74; PULSE 85; RESP 18; O2SAT 98; BMI 31.1
--- NOTE | 2020-06-27 16:42 | HMH.PMPROC ---
- Procedure Date: 06/27/20 Time: 16:42 Anesthesiologist:: Claribel Wagoner APRN Complications:: None Pre-procedure Diagnosis:: Degenerative disc disease cervical and lumbar spine with cervical lumbar radiculopathy symptoms, postlaminectomy syndrome cervical spine Post-procedure Diagnosis:: Same Indications for Procedure:: Patient is a 44-year-old white male who presents today for follow-up after a spinal cord stimulator trial. He is being treated for chronic neck and low back pain with cervical and lumbar radiculopathy symptoms. Patient does have postlaminectomy syndrome of his cervical spine. Patient has pain in both areas. He also has pain that radiates into his right arm as well as his bilateral lower extremities. He did try injections which did give him short-term relief however, he never got long-term relief with the injections. He did try physical therapy which made his pain worse. He also tried a home stretching program. And continues with home stretching. Ice and heat therapies have not been beneficial for his pain. He has tried anti-inflammatories with no long-term relief. He is not considered a surgical candidate from neurosurgery standpoint. He did undergo psychological evaluation which he was deemed an appropriate candidate for an implanted device. Patient is following up today after his trial with the [employer] spinal cord stimulator. Patient says that he got approximately 70% relief during the trial. He says he is able to raise his legs and this is something he was unable to do before having the trial. He is also walking without a cane today. Patient says he is not been able to walk without a cane for years. Patient says he does have significant neck pain with radiation into his right arm as well. He is hoping that the stimulator will give him relief to both areas. He does report history of CRPS into his right arm. Patient is not on any anticoagulation therapy. Patient does want to proceed with the spinal cord stimulator implant. We will remove his leads today. 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 The risks and benefits of the procedure were explained to the patient. The patient was taken to the procedure room where noninvasive monitors were placed, including noninvasive blood pressure cuff and pulse oximeter. The area around the leads was examined and there were no signs or symptoms of infection. The skin was cleansed using chlorhexidine around the trial leads. Both leads were removed without incident. Leads were complete and intact. Dressing was placed. Patient tolerated the procedure well with no complications. Plan and Disposition:: Patient reports to have gotten up to 70% relief during his trial. We did remove the leads today. He did not have any redness, drainage, or edema noted to the lead site. We will proceed with the [employer] spinal cord stimulator implant. Patient does report to prefer to have a stimulator placed on his right side because he does sleep more often on the left side. He does hope that the stimulator will give him relief into the neck as well. He has chronic neck pain as well as low back pain. His pain does radiate into the right arm. He also has chronic pain into bilateral lower extremities. Patient was much more functional during the trial. He is not on any anticoagulation ther
== END ==
PROVIDERS: PCP Internal Medicine Adolescent Medicine; Visit Provider Clinical Nurse Specialist Family Health
DX: M50.10 Cervical disc disorder with radiculopathy, unspecified cervical region (principal); M96.1 Postlaminectomy syndrome, not elsewhere classified
CPT/HCPCS: 99212

== ENCOUNTER → 2020-07-15 08:50 | Outpatient (POV) | payer BC, SELFPAY ==
[2020-07-15 08:58] VITALS: BP 148/99; PULSE 78; RESP 18; TEMP 36.9; O2SAT 98; BMI 30.5
--- NOTE | 2020-07-15 09:16 | HMH.PAINSOAP ---
[facility] Pain Management SOAP Note Subjective:: Patient is a pleasant 44-year-old white male who presents today for follow-up. Patient has chronic neck and low back pain. Patient recently had a neurostimulator trial and has done extremely well with that. Patient states during this time he was able to sleep and do activities of daily living. He was able to lift his legs and ambulate without a cane. Patient states he got 80% relief after his trial. Patient is continuing a home stretching program. He has ice and heat therapies. He is tried and failed anti-inflammatories and is not considered a surgical candidate at this time. He did have an appropriate psychological evaluation. Rates his pain today a 7 out of 10 ROS General: no recent weight change, no fever, no sleep disturbances Respiratory: no cough, no shortness of air, no recurring pulmonary infections Cardiovascular/Peripheral Vascular: No chest pain, No palpitations, no edema, no shortness of breath. Gastrointestinal: no new onset incontinence, normal bowel movements reported Genitourinary: no new onset incontinence Musculoskeletal: Back pain, leg pain, neck pain, arm pain Psychiatric: normal mood/ affect Neurological: [denies new onset weakness in extremities], [denies new onset balance issues] Objective:: Physical Exam General: Alert and oriented x3, no acute distress, pleasant and cooperative, [on room air] Lungs: Resps E/U, Symmetrical chest expansion, Eyes: PERRL Musculoskeletal: Flexion and extension of cervical and lumbar spine somewhat guarded secondary to pain, deep tendon reflexes normal, strength in upper and lower extremities [5/5], [abnormal gait noted] 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 Patient is concerned about his neck pain. We discussed that the additional options for managing his neck pain post implant. We will follow-up with him after his surgery reassess his symptoms at that time he has been instructed to call the office if he has any issues prior to his next appointment. Dr. Mccord has reviewed this note and agrees with this plan of care. This note was dictated using voice recognition software and may contain errors or omissions [facility] History I have reviewed the patient's past medical history: Yes Medical History: Reports:: Anxiety, Depression, Gastroesophageal Reflux Disease(GERD), Hypertension Denies:: Cancer, Diabetes Mellitus Type 1, Diabetes Mellitus Type 2, Internal Pacemaker, Lung Disease, MRSA, Seizures *Have you ever received a pneumonia vaccine?: No *Have you received a flu vaccine this season?: No Other Medical History: Reports: Other. Denies: Blood Transfusion Reaction Laterality Cases: Bilateral: Carpal Tunnel Release, Tonsillectomy Other Surgeries: Yes: EGD, Other. No: Pacemaker Amputation: No Fractures: Yes - *Social History Smoking Status: Current every day smoker Tobacco Type: cigarettes # Packs/Day (cigarettes): 1 #Yrs smoked (if former smoker): 30 Alcohol Intake: never Substance Use Type: denies use *Occupational Status:: other Housing: house Household Members: other *Travel in the last 8 weeks: None - Psychiatric History Pschychiatric History:: Reports:: Anxiety, Depression Family Hx:: Unable to obtain
== END ==
PROVIDERS: PCP Internal Medicine Adolescent Medicine; Visit Provider Clinical Nurse Specialist Family Health
DX: M50.10 Cervical disc disorder with radiculopathy, unspecified cervical region (principal); M51.36 Other intervertebral disc degeneration, lumbar region; M96.1 Postlaminectomy syndrome, not elsewhere classified
CPT/HCPCS: 99212

== ENCOUNTER → 2020-07-17 08:46 | Outpatient (CLI) | payer BC, SELFPAY ==
[2020-07-17 10:15] LABS: Chloride 107 mmol/L (98-107); Potassium 4.1 mmoL/L (3.5-5.1); Sodium 140 mmol/L (136-145)
[2020-07-17 10:17] LABS: Alanine Aminotransferase 78 U/L (12-78); Aspartate Amino Transferase 41 U/L (17-59); Blood Urea Nitrogen 14 mg/dl (9-20); Estimated Glomerular Filt Rate 82 ml/min (>60); GFR (African American) 99 ML/MIN (>60)
[2020-07-17 10:18] LABS: Albumin Level 4.1 g/dl (3.5-5.0); Albumin/Globulin Ratio 1.5 (1.1-1.8); Alkaline Phosphatase 60 U/L (38-126); Anion Gap 12.1 mEq/L (5-15); Bilirubin,Total 0.4 mg/dl (0.2-1.3); Calcium 8.8 mg/dl (8.4-10.2); Carbon Dioxide 25 mmol/L (22.0-30.0); Chol/HDL Ratio 5.9 (1-3.5); Cholesterol 219 mg/dl (140-200); Globulin 2.7 g/dL (1.3-3.2); Glucose 149 mg/dl (74-100); HDL Cholesterol 37 mg/dl (40-60); Total Protein,Serum 6.8 g/dl (6.3-8.2); Triglycerides 385 mg/dl (30-150); VLDL Cholesterol 77 mg/dL (0-40)
[2020-07-17 10:29] LABS: Direct LDL Cholesterol 131.05 mg/dL (100-129)
[2020-07-18 08:50] LABS: Basophils # 0.1 K/mm3 (0-0.2); Eosinophils # 0.2 K/mm3 (0.0-0.4); Eosinophils % 2.1 % (0.1-12.0); Hematocrit 52.7 % (42.0-52.0); Hemoglobin 16.8 g/dL (14.1-18.0); Lymphocytes # 3.4 K/mm3 (0.7-4.5); Lymphocytes % 29.6 % (10-50); Mean Corpuscular Hemoglobin 32.9 pg (27.0-31.2); Mean Platelet Volume 10.3 fl (7.4-10.4); Monocytes # 1.1 K/mm3 (0.1-1.0); Monocytes % 9.3 % (1.7-9.3); Neutrophils # 6.6 K/mm3 (1.8-7.8); Neutrophils % 58.1 % (37.0-80.0); Platelet Count 236 K/mm3 (142-424); Red Blood Count 5.12 M/mm3 (4.60-6.20); Red Cell Distribution Width 13.9 % (11.5-17.5); White Blood Count 11.4 K/mm3 (4.8-10.8)
== END ==
PROVIDERS: Visit Provider Internal Medicine Adolescent Medicine
DX: Z00.00 Encounter for general adult medical examination without abnormal findings (principal); G47.33 Obstructive sleep apnea (adult) (pediatric); Z79.899 Other long term (current) drug therapy
CPT/HCPCS: 36415; 80053; 80061; 85025

== ENCOUNTER → 2020-07-25 10:28 | Outpatient (CLI) | payer BC, SELFPAY ==
[2020-07-25 12:13] LABS: Hemoglobin A1C 5.7 % (4.0-6.0)
== END ==
PROVIDERS: Visit Provider Internal Medicine Adolescent Medicine
DX: R73.9 Hyperglycemia, unspecified (principal)
CPT/HCPCS: 36415; 83036

== ENCOUNTER → 2020-08-06 07:18 | Outpatient (CLI) | payer BC, SELFPAY ==
[2020-08-06 08:34] LABS: Chloride 103 mmol/L (98-107)
[2020-08-06 08:35] LABS: Potassium 4.1 mmoL/L (3.5-5.1); Sodium 138 mmol/L (136-145)
[2020-08-06 08:37] LABS: Basophils # 0.1 K/mm3 (0-0.2); Basophils % 0.8 % (0.1-2.0); Blood Urea Nitrogen 14 mg/dl (9-20); Eosinophils # 0.3 K/mm3 (0.0-0.4); Eosinophils % 2.5 % (0.1-12.0); Estimated Glomerular Filt Rate 73 ml/min (>60); GFR (African American) 89 ML/MIN (>60); Hematocrit 49.7 % (42.0-52.0); Hemoglobin 17.1 g/dL (14.1-18.0); Lymphocytes # 3.4 K/mm3 (0.7-4.5); Lymphocytes % 31.9 % (10-50); Mean Corpuscular HGB Conc 34.4 g/dL (31.8-35.4); Mean Corpuscular Hemoglobin 33.5 pg (27.0-31.2); Mean Corpuscular Volume 97.4 fl (80-94); Mean Platelet Volume 8.6 fl (7.4-10.4); Monocytes # 0.8 K/mm3 (0.1-1.0); Monocytes % 7.7 % (1.7-9.3); Neutrophils # 6.1 K/mm3 (1.8-7.8); Neutrophils % 57.1 % (37.0-80.0); Platelet Count 222 K/mm3 (142-424); Red Cell Distribution Width 13.9 % (11.5-17.5); White Blood Count 10.7 K/mm3 (4.8-10.8)
[2020-08-06 08:38] LABS: Anion Gap 13.1 mEq/L (5-15); Carbon Dioxide 26 mmol/L (22.0-30.0); Glucose 181 mg/dl (74-100)
[2020-08-06 09:53] LABS: Coronavirus 19 IgG Antibody Negative (Negative); Coronavirus 19 IgM Antibody Negative (Negative)
== END ==
PROVIDERS: Visit Provider Anesthesiology
DX: Z01.818 Encounter for other preprocedural examination (principal); M51.36 Other intervertebral disc degeneration, lumbar region
CPT/HCPCS: 36415; 80048; 85025; 86328

== ENCOUNTER 2020-08-07 09:52 | Day surgery (SDC) | payer BC, SELFPAY ==
[2020-08-05 15:04] VITALS: BMI 31.1
[2020-08-07] VITALS (9 sets, daily range): BP systolic 115–176; BP diastolic 76–89; PULSE 55–71; RESP 18; TEMP 36.5–43; O2SAT 92–98
--- NOTE | 2020-08-07 11:37 | HMH.PMCON ---
Assessment and Plan - Assessment and plan all Dx Assessment and Plan for all problems:: Impression-degenerative disc disease of the lumbar spine with radiculopathy Plan-placement of pain stimulator system today HPI - Data of Consult Patient: new to practice Consult date: 08/07/20 Requesting Physician: Nghia Mccord MD Primary Care Provider: Mariusz Saucedo MD - Consult Narrative History of present illness: Mr. William is a 44 year old male with chronic back pain. Multiple attempts at management of his pain including a cervical fusion. Also has lower extremity and back pain with degenerative disc disease of the lumbar spine and radiculopathy. He comes in today for placement of a pain stimulator system CC: Nghia Mccord MD Chronic back pain [facility] History Medical History: Reports:: Anxiety, Depression, Gastroesophageal Reflux Disease(GERD), Hypertension Denies:: Cancer, Diabetes Mellitus Type 1, Diabetes Mellitus Type 2, Internal Pacemaker, Lung Disease, MRSA, Seizures *Have you ever received a pneumonia vaccine?: No *Have you received a flu vaccine this season?: No Other Medical History: Reports: Other. Denies: Blood Transfusion Reaction Comment:: Illnesses-chronic back pain, cigarette abuse, hypertension, anxiety, GERD Laterality Cases: Bilateral: Carpal Tunnel Release, Tonsillectomy Other Surgeries: Yes: EGD, Other. No: Pacemaker Amputation: No Fractures: Yes Comment: Operations have a cervical spine fusion, bilateral carpal tunnel surgery, tonsillectomy - *Social History Last grade of school completed: High school graduate Smoking Status: Current every day smoker Tobacco Type: cigarettes # Packs/Day (cigarettes): 1 #Yrs smoked (if former smoker): 30 Alcohol Intake: never Substance Use Type: denies use *Occupational Status:: unemployed Housing: house Household Members: significant other, children *Travel in the last 8 weeks: None - Psychiatric History Pschychiatric History:: Reports:: Anxiety, Depression Family Hx:: Unable to obtain Meds Home Medications Medication Instructions Recorded Confirmed Type Cyanocobalamin (Vitamin B-12) 2 inj IM WEEKLY 05/31/18 08/07/20 History [Cyanocobalamin 1,000mcg/mL Vial] Mometasone Furoate [Nasonex] 17 gm NS DAILY 05/31/18 08/05/20 History Multivitamin [Multivitamins] 1 each PO DAILY 05/31/18 08/05/20 History carvedilol 12.5 mg tablet 25 mg PO BID 06/02/18 08/05/20 History gabapentin 300 mg capsule 600 mg PO TID 06/02/18 08/05/20 History clonazepam 1 mg tablet 4 mg PO QID tab 02/22/19 08/05/20 History Acetaminophen [Acetaminophen Extra 1,000 mg PO BID 05/21/20 08/05/20 History Strength] Omeprazole [Omeprazole 20mg Tab] 20 mg PO BID 05/21/20 08/05/20 History Atorvastatin Calcium [Lipitor 40mg 40 mg PO HS 08/05/20 08/05/20 History Tablet*] lisinopriL [Lisinopril 10mg Tab] 10 mg PO DAILY 08/05/20 08/05/20 History Sulfamethoxazole/Trimethoprim 1 each PO BID #14 tab 08/07/20 Rx [Bactrim DS tablet] Allergies Allergy/AdvReac Type Severity Reaction Status Date / Time varenicline [From CHANTIX] Allergy Intermediate [place] Verified 08/05/20 15:01 bupropion Allergy Unknown [place] Verified 08/05/20 15:01 antidepressants AdvReac Severe Uncoded 05/21/20 10:57 Objective Vital signs: Temp Pulse Resp BP Pulse Ox 97.7 F 57 L 18 176/82 H 98 08/07/20 10:36 08/07/20 10:36 08/07/20 10:36 08/07/20 10:36 08/07/20 10:36 Comments: Healthy appearing white male in no distress - *Routine Respiratory Exam Present: CTA bilaterally Comments: Is clear - *Routine Cardiovascular Exam Present: RRR - *Routine Abdominal Exam Present: soft
--- NOTE | 2020-08-07 12:47 | HMH.ANESCL ---
[facility] Anesthesia Checklist - Structural Data Admitted From: Home Planned Operative Procedure/s: nerve stim implant Consent for Planned Operative Procedure(s) Verified: Yes - Additional verifications Anesthesia Reactions: No Hx Blood Transfusions: No Blood Transfusion Reaction: No - Airway Assessment C-Spine Mobility Assessed: Yes TMJ Mobility Assessed: Yes Dentition: Good Dentition - Neurological Assessment Level of Consciousness: Awake, Alert, Appropriate - Anesthesia Plan Anesthesia Risk discussed: Yes Anesthesia Plan: Verified ASA Class: III Anesthesia Type: MAC [facility] History I have reviewed the patient's past medical history: Yes Medical History: Reports:: Anxiety, Depression, Gastroesophageal Reflux Disease(GERD), Hypertension Denies:: Cancer, Diabetes Mellitus Type 1, Diabetes Mellitus Type 2, Internal Pacemaker, Lung Disease, MRSA, Seizures *Have you ever received a pneumonia vaccine?: No *Have you received a flu vaccine this season?: No Other Medical History: Reports: Other. Denies: Blood Transfusion Reaction Anesthesia experience/problems:: none Laterality Cases: Bilateral: Carpal Tunnel Release, Tonsillectomy Other Surgeries: Yes: EGD, Other. No: Pacemaker Amputation: No Fractures: Yes - *Social History Last grade of school completed: High school graduate Smoking Status: Current every day smoker Tobacco Type: cigarettes # Packs/Day (cigarettes): 1 #Yrs smoked (if former smoker): 30 Alcohol Intake: never Substance Use Type: denies use *Occupational Status:: unemployed Housing: house Household Members: significant other, children *Travel in the last 8 weeks: None - Psychiatric History Pschychiatric History:: Reports:: Anxiety, Depression Family Hx:: Unable to obtain
--- NOTE | 2020-08-07 13:51 | P.OP_ITS ---
Date of procedure: 08/07/20 Pre-op Diagnosis:: Degenerative disc disease of the lumbar spine with radiculopathy Post-op Diagnosis:: Same Procedure performed:: Placement of right pain stimulator generator Surgeon:: Osvaldo Goss MD SOFTWARE VALIDATION ENGINEER:: Clemente Dawkins, Mariusz Kim, Sal Sagastume, Jac Cassidy, Thong Anesthesia: MAC Estimated blood loss (mL): 5 Operative findings:: Not applicable Operative note:: Once adequate IV sedation was obtained by anesthesia the patient was placed prone on the operating table and his back and flank regions were prepped and draped in sterile fashion. Once adequate local anesthesia utilizing 1% Xylocaine with epinephrine a paraspinal incision was made by Dr. Arambula there which 2 epidural leads were placed in the epidural space to the area desired by Dr. Arambula. The leads were fixed the paraspinal fascia with fixation devices and 2-0 Prolene suture. Right flank incision was made in which made a pocket for placement of the generator. Both pockets irrigated with antibiotic solution. The lead were passed from the paraspinal incision to the pocket incision utilize a tunneling device. Leads fix the generator which was placed in the pocket. System noted to be functioning properly. At this point the subcutaneous tissues closed with stitches of 2-0 Vicryl. Skin was then closed arm stitches of 4-0 nylon. Wound VAC dressings and a binder applied to the wound. The patient taught procedure well was taken to recovery room in stable condition. Upon recovery the patient be discharged home with follow-up in 2 weeks first suture removal in 1 week for removal of the wound VAC system. Antibiotics x1 week per protocol. The patient tolerated the procedure well Condition: stable Disposition: PACU Complications:: None
--- NOTE | 2020-08-07 15:40 | HMH.OPNOTE ---
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 He does have pain in both areas. He has failed all previous conservative treatments including physical therapy, injections, oral medications and previous surgery. He has had a successful psychological evaluation and had a successful spinal cord stimulator trial for his low back pain and leg pain. We will plan on permanent placement of a spinal cord stimulator today. Operative findings:: None Operative note:: Informed consent was obtained and the risk and benefits of the procedure was explained to the patient. The patient was taken to the procedure room and placed prone on the procedure table. Patient was prepped and draped in sterile fashion. C-arm fluoroscopy was used to view the lumbar spine. The skin and subcutaneous tissues adjacent to the L2-L3 and L3-4 interspace were anesthetized using lidocaine. I made an incision and dissected down to the lumbar paraspinous fascia. A 17-gauge epidural needle was inserted and advanced into the L2-L3 interspace. After confirmation of needle placement in the epidural space stimulating lead was inserted and advanced very easily to the T7-T8 vertebral body. Lead placement was checked in AP and lateral views. A second needle was then inserted and advanced into the L2-L3 interspace again. Again after confirmation of needle placement in the epidural space a second lead was inserted and advanced again very easily to the T7-T8 vertebral body. Again lead placement was checked in AP and lateral views. The needles and stylets were withdrawn. The leads were secured to the fascia with anchor devices and 2-0 Prolene. The generator pocket was created by Dr. Goss. I tunneled leads from the back to the generator pocket and attached the leads to the generator. Both incisions were irrigated with bacitracin solution. Impedances were checked and found to be okay. Both incisions were then closed with 2-0 Vicryl followed by 4-0 nylon. A wound VAC was placed over both incisions. The patient was placed in an abdominal binder and taken recovery in stable condition. Patient tolerated procedure well with no complications. Patient was programmed by the [employer] patient registration representative with good stimulation in all areas of pain. The patient was put on a paresthesia free FAST program. Patient was discharged home neurologically intact with good relief of pain symptoms. Plan and disposition: We will follow-up with this patient in 1 week for wound check and reprogramming. We will follow-up in 2 weeks for suture removal and reprogram again if needed. If patient has any problems or questions they are to call us in the pain clinic. Condition: stable Disposition: PACU Complications:: None
== END 2020-08-07 16:09 | disposition home or self-care (01) ==
LOC: OR 09:54
PROVIDERS: PCP Internal Medicine Adolescent Medicine; Visit Provider Anesthesiology
PROC: (CPT 63685; principal; 2020-08-07 11:30)
DX: M51.16 Intervertebral disc disorders with radiculopathy, lumbar region (principal); K21.9 Gastro-esophageal reflux disease without esophagitis; I10 Essential (primary) hypertension; F41.9 Anxiety disorder, unspecified; F32.9 Major depressive disorder, single episode, unspecified
CPT/HCPCS: 63685; 63650 ×2; 96374; C1778; C1820; J3370

== ENCOUNTER → 2020-08-15 08:23 | Outpatient (POV) | payer BC, SELFPAY ==
--- NOTE | 2020-08-15 08:59 | HMH.PAINSOAP ---
[facility] Pain Management SOAP Note Subjective:: Patient is a pleasant 44-year-old white male who presents today for follow-up after spinal cord stimulator implant. He has been treated for both neck and low back pain with radicular symptoms. Patient says his pain is a 6 out of 10 today. He says most of his pain is incisional and due to the Prevena wound VAC. His wound VAC will be removed today. He says that he feels once the wound VAC is removed he will get some relief. Patient says that he is not happy about wearing the abdominal binder. He says that it causes him pain as well. Patient and I had a long discussion concerning the abdominal binder and significance of the binder. He says he will continue to wear it. Review of Systems General: No recent weight changes, no fever, no sleep disturbances Respiratory: No cough, no shortness of air, no recurring pulmonary infections Cardiovascular/peripheral vascular: No chest pain, no palpitations, no edema, no shortness of breath Gastrointestinal: No new onset incontinence, normal bowel movements reported Genitourinary: No new onset incontinence Musculoskeletal: Intermittent incisional pain Psychiatric: Normal mood/affect Neurological: [Denies weakness in extremities], [denies balance issues] Objective:: Physical exam General: Alert and oriented x3, no acute distress, pleasant and cooperative, [on room air] Lungs: Respirations even and unlabored, symmetrical chest expansion Eyes: PERRL Musculoskeletal: Flexion and extension of cervical and lumbar spine somewhat guarded secondary to pain, deep tendon reflexes normal, strength in upper and lower extremities [5/5], [abnormal gait noted] Neurological: Speech clear, 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 His Prevena wound VAC was removed today. His incision is well approximated, with no redness, no drainage, or edema noted to the site. Again, I did discuss with the patient the importance of wearing the abdominal binder. We will see him back in 2 weeks for suture removal. Patient has been instructed to contact clinic if he has any concerns before his next appointment. The patient and I specifically discussed risk factors for COVID19. These risks include, but are not limited to age greater than 60, heart or lung disease, diabetes, immunosuppression, and travel. We also discussed NSAIDs may worsen COVID19 infection or symptoms. Patient should not use NSAIDs to treat COVID19 signs or symptoms. Patient was also informed that any type of corticosteroid of any form (oral or injection) will decrease the patient's immune system response and may increase the likelihood of COVID19 infection and symptoms[address]. Mccord has reviewed this note and agrees with this plan of care. This note was dictated using voice recognition software and make contain errors or omissions. [facility] History I have reviewed the patient's past medical history: Yes Medical History: Reports:: Anxiety, Depression, Gastroesophageal Reflux Disease(GERD), Hypertension Denies:: Cancer, Diabetes Mellitus Type 1, Diabetes Mellitus Type 2, Internal Pacemaker, Lung Disease, MRSA, Seizures *Have you ever received a pneumonia vaccine?: No *Have you received a flu vaccine this season?: No Other Medical History: Reports: Other. Denies: Blood Transfusion Reaction Laterality Cases: Bilateral: Carpal Tunnel Release, Tonsillectomy Other Surgeries: Yes: EGD, Other. No: Pacemaker Amputation: No Fractures: Yes - *Social History Smoking Status: Current every day smoker Tobacco Type: cigarettes # Packs/Day (cigarettes): 1 #Yrs smoked (if former smoker): 30 Alcohol Intake: never Substance Use Type: denies use *Occupational Status:: unemployed Housing: house Household Members: significant other, children *Travel in the last 8 weeks: None - Psy
[2020-08-15 09:11] VITALS: BP 122/73; PULSE 65; RESP 18; TEMP 36.8; O2SAT 98; BMI 31.1
== END ==
PROVIDERS: PCP Internal Medicine Adolescent Medicine; Visit Provider Clinical Nurse Specialist Family Health
DX: M50.10 Cervical disc disorder with radiculopathy, unspecified cervical region (principal); M51.16 Intervertebral disc disorders with radiculopathy, lumbar region
CPT/HCPCS: 99212

== ENCOUNTER → 2020-08-29 10:19 | Outpatient (POV) | payer BC, SELFPAY ==
--- NOTE | 2020-08-29 11:15 | HMH.PAINSOAP ---
[facility] Pain Management SOAP Note Subjective:: Patient is a pleasant 44-year-old white male who presents today for follow-up after spinal cord stimulator implant. He rates his pain a 5 out of 10 however he states when his spinal neurostimulator is on he has a 50% plus decrease in his pain. Patient sutures were removed his incisions are well approximated and healed. Overall doing very well. Patient is having cervical pain. He had an ACDF last year with no relief of his symptomology. Patient has radiation into his right shoulder. Patient and I discussed cervical epidural steroid injections. If he is healed in 2 weeks we will set him up for this. ROS General: no recent weight change, no fever, no sleep disturbances Respiratory: no cough, no shortness of air, no recurring pulmonary infections Cardiovascular/Peripheral Vascular: No chest pain, No palpitations, no edema, no shortness of breath. Gastrointestinal: no new onset incontinence, normal bowel movements reported Genitourinary: no new onset incontinence Musculoskeletal: Neck pain, back pain, arm pain Psychiatric: normal mood/ affect Neurological: [denies new onset weakness in extremities], [denies new onset balance issues] Objective:: Physical Exam General: Alert and oriented x3, no acute distress, pleasant and cooperative, [on room air] Lungs: Resps E/U, Symmetrical chest expansion, Eyes: PERRL Musculoskeletal: Flexion and extension of lumbar and cervical spine somewhat guarded secondary to pain, deep tendon reflexes normal, strength in upper and lower extremities [5/5], antalgic gait noted Neurological: speech clear, camp tender equal, no gross sensory deficits Assessment:: Degenerative disc disease lumbar spine lumbar radiculopathy, postlaminectomy syndrome cervical spine cervical radiculopathy degenerative disc disease cervical spine Plan:: The patient back in the office in 2 weeks reassess him at that time if he is doing well we will set him up for cervical epidural steroid injection. Patient has been instructed to call the office if he has any issues prior to his next appointment. Dr. Mccord has reviewed this note and agrees with this plan of care. This note was dictated using voice recognition software and may contain errors or omissions [facility] History I have reviewed the patient's past medical history: Yes Medical History: Reports:: Anxiety, Depression, Gastroesophageal Reflux Disease(GERD), Hypertension Denies:: Cancer, Diabetes Mellitus Type 1, Diabetes Mellitus Type 2, Internal Pacemaker, Lung Disease, MRSA, Seizures *Have you ever received a pneumonia vaccine?: Yes *Have you received a flu vaccine this season?: Yes Other Medical History: Reports: Other. Denies: Blood Transfusion Reaction Laterality Cases: Bilateral: Carpal Tunnel Release, Tonsillectomy Other Surgeries: Yes: EGD, Other. No: Pacemaker Amputation: No Fractures: Yes - *Social History Smoking Status: Current every day smoker Tobacco Type: cigarettes # Packs/Day (cigarettes): 1 #Yrs smoked (if former smoker): 30 Alcohol Intake: never Substance Use Type: denies use *Occupational Status:: other Housing: house Household Members: significant other, children *Travel in the last 8 weeks: None - Psychiatric History Pschychiatric History:: Reports:: Anxiety, Depression Family Hx:: Unable to obtain
[2020-08-29 11:20] VITALS: BP 135/78; PULSE 74; RESP 18; O2SAT 98; BMI 31.1
== END ==
PROVIDERS: PCP Internal Medicine Adolescent Medicine; Visit Provider Clinical Nurse Specialist Family Health
DX: M51.16 Intervertebral disc disorders with radiculopathy, lumbar region (principal); M96.1 Postlaminectomy syndrome, not elsewhere classified; M50.10 Cervical disc disorder with radiculopathy, unspecified cervical region
CPT/HCPCS: 99212; G0463

== ENCOUNTER → 2020-09-30 10:51 | Outpatient (POV) | payer BC, SELFPAY ==
[2020-09-30 11:09] VITALS: BP 132/77; PULSE 72; RESP 18; O2SAT 98; BMI 32.6
--- NOTE | 2020-09-30 11:23 | P.CONS_ITS ---
[facility] Pain Management SOAP Note Subjective:: Patient is a 45-year-old white male who presents today for follow-up. Patient has spinal cord stimulator implanted. Patient rates his pain today 6 out of 10 he needs to be reprogrammed. We encouraged him to contact the [employer] representatives. Patient wants to discuss his neck pain. He rates it a 6 out of 10. Patient has had neck pain for quite some time. Patient has had an ACDF in the past. Patient has numbness and tingling down his right arm. Patient has not had any epidural steroid injections cervically. We will move forward with this. Patient is also wanting to discuss his muscle spasms. Patient is having these quite often. ROS General: no recent weight change, no fever, no sleep disturbances Respiratory: no cough, no shortness of air, no recurring pulmonary infections Cardiovascular/Peripheral Vascular: No chest pain, No palpitations, no edema, no shortness of breath. Gastrointestinal: no new onset incontinence, normal bowel movements reported Genitourinary: no new onset incontinence Musculoskeletal: Back pain, neck pain, arm pain, leg pain Psychiatric: normal mood/ affect, Neurological: [denies new onset weakness in extremities], [denies new onset balance issues] Objective:: Physical Exam General: Alert and oriented x3, no acute distress, pleasant and cooperative, [on room air] Lungs: Resps E/U, Symmetrical chest expansion, Eyes: PERRL Musculoskeletal: Flexion and extension of cervical and lumbar spine somewhat guarded secondary to pain, deep tendon reflexes normal, strength in upper and lower extremities [5/5], [abnormal gait noted] Neurological: speech clear, 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 Also start him on Flexeril 10 mg 1 p.o. 3 times daily. 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 Dr. Mccord has reviewed this note and agrees with this plan of care. This note was dictated using voice recognition software and may contain errors or omissions [facility] History I have reviewed the patient's past medical history: Yes Medical History: Reports:: Anxiety, Depression, Gastroesophageal Reflux Disease(GERD), Hypertension Denies:: Cancer, Diabetes Mellitus Type 1, Diabetes Mellitus Type 2, Internal Pacemaker, Lung Disease, MRSA, Seizures *Have you ever received a pneumonia vaccine?: Yes *Have you received a flu vaccine this season?: Yes Other Medical History: Reports: Other. Denies: Blood Transfusion Reaction Laterality Cases: Bilateral: Carpal Tunnel Release, Tonsillectomy Other Surgeries: Yes: EGD, Other. No: Pacemaker Amputation: No Fractures: Yes - *Social History Smoking Status: Current every day smoker Tobacco Type: cigarettes # Packs/Day (cigarettes): 1 #Yrs smoked (if former smoker): 30 Alcohol Intake: never Substance Use Type: denies use *Occupational Status:: employed Housing: house Household Members: significant other, children *Travel in the last 8 weeks: None - Psychiatric History Pschychiatric History:: Reports:: Anxiety, Depression Family Hx:: Unable to obtain
== END ==
PROVIDERS: PCP Internal Medicine Adolescent Medicine; Visit Provider Clinical Nurse Specialist Family Health
DX: M51.16 Intervertebral disc disorders with radiculopathy, lumbar region (principal); M96.1 Postlaminectomy syndrome, not elsewhere classified
CPT/HCPCS: 99212; G0463

== ENCOUNTER → 2020-10-16 08:36 | Outpatient (CLI) | payer BC, SELFPAY | PROVIDERS: PCP Internal Medicine Adolescent Medicine; Visit Provider Internal Medicine Adolescent Medicine | DX: G47.33 Obstructive sleep apnea (adult) (pediatric) (principal); R53.83 Other fatigue | CPT/HCPCS: 95806 ==

== ENCOUNTER 2020-10-18 08:52 | Day surgery (SDC) | payer BC, SELFPAY ==
[2020-10-18 09:22] VITALS: BP 119/83; PULSE 83; RESP 18; TEMP 36.5; O2SAT 93; BMI 31.1
[2020-10-18 09:50] VITALS: BP 142/74; PULSE 88; RESP 18; O2SAT 98
[2020-10-18 09:52] VITALS: BP 139/74; PULSE 85; RESP 18; O2SAT 98
--- NOTE | 2020-10-18 09:56 | P.PCN_ITS ---
- Procedure Date: 10/18/20 Time: 09:56 Anesthesiologist:: Nghia Mccord MD Complications:: None Pre-procedure Diagnosis:: Degenerative disc disease of cervical spine with cervical radiculopathy symptoms and postlaminectomy syndrome of the cervical spine Post-procedure Diagnosis:: Same Indications for Procedure:: This patient is a pleasant 45-year-old white male who we are treating for neck pain with cervical radiculopathy symptoms and postlaminectomy syndrome of cervical spine. He does have a spinal cord stimulator in place to help with his low back pain and leg pain. He is doing well with his [employer] spinal cord stimulator system. He has had a previous ACDF and continues to have increasing neck pain and some loss of range of motion. We will do a cervical epidural steroid injection today to see if this helps with his pain symptoms. Procedure Details:: Cervical epidural steroid injection under fluoroscopy Informed consent was obtained and the risks and benefits of the procedure was explained to the patient. The patient was taken to the procedure room placed prone on the procedure table. The neck was prepped using ChloraPrep. The skin and subcutaneous tissues were anesthetized using lidocaine. I placed a 18-gauge epidural needle into the C5-C6 interspace and advanced using [id number] to air and fluoroscopic guidance. After confirmation of needle placement in the epidural space with dye, I injected 3 mL's lidocaine 1.5% and Depo-Medrol 80 mg. The patient tolerated the procedure well with no complications. Plan and Disposition:: We will follow-up with him in 2 weeks. Will reevaluate his symptoms at that time.
[2020-10-18 10:04] VITALS: BP 117/81; PULSE 75; RESP 18; O2SAT 93
== END 2020-10-18 10:05 | disposition home or self-care (01) ==
LOC: SC.PAINP 08:52
PROVIDERS: PCP Internal Medicine Adolescent Medicine; Visit Provider Anesthesiology
DX: M50.10 Cervical disc disorder with radiculopathy, unspecified cervical region (principal); I10 Essential (primary) hypertension; K21.9 Gastro-esophageal reflux disease without esophagitis; F41.9 Anxiety disorder, unspecified; F32.9 Major depressive disorder, single episode, unspecified; Z88.8 Allergy status to other drugs, medicaments and biological substances; Z72.0 Tobacco use
CPT/HCPCS: 62321; J1040; Q9966

== ENCOUNTER → 2020-11-07 09:39 | Outpatient (POV) | payer BC, SELFPAY ==
[2020-11-07 10:22] VITALS: BP 133/85; PULSE 74; RESP 18; O2SAT 98; BMI 31.1
--- NOTE | 2020-11-07 12:18 | HMH.PAINSOAP ---
[facility] Pain Management SOAP Note Subjective:: Patient is a pleasant 45 year-old white male who we are treating for neck pain with cervical radiculopathy symptoms and postlaminectomy syndrome of the cervical spine. Patient does have a spinal cord stimulator in place it does help somewhat however recently he has had loss of control of his bladder. Patient has had three separate episodes with complete bladder emptying. Patient and I discussed getting some updated imaging in regards to his low back. Patient has a long history of falls and has recently fallen on the of this month. He fell down five steps. Patient does have some noted redness and bruising on the right side of his body. Patient states that he has had 8-10 falls in the last year. One time resulting in broken fingers. Patient a reported complete degeneration of a TFCC. He is going on the to have a arthroscopy procedure in regards to this. Patient has difficulty with bending his hands. He has difficulty with activities of daily living. Patient also having quite a bit of neck and arm pain. He had a cervical epidural steroid injection which did not help at this time. He rates his pain a 7 out of 10. Patient has a severe decreased range of motion in his neck. We discussed potential medial branch blocks in the future. At this time I do believe he needs to concentrate on the arthroscopy that he is having on Wednesday. Patient has had an ACDF in the past. Patient also had quite a bit of low back and leg pain. Patient does ambulate with a cane. He is unable to ambulate otherwise. Patient does have a neurostimulator which is slightly beneficial. Patient is also tried medication management over the past several years. At this point patient is focusing on functionality versus relief of pain. ROS General: no recent weight change, no fever, no sleep disturbances Respiratory: no cough, no shortness of air, no recurring pulmonary infections Cardiovascular/Peripheral Vascular: No chest pain, No palpitations, no edema, no shortness of breath. Gastrointestinal: no new onset incontinence, normal bowel movements reported Genitourinary: New onset of urinary incontinence Musculoskeletal: Back pain, leg pain, neck pain, wrist pain Psychiatric: normal mood/ affect Neurological: Weakness in all four extremities, [denies new onset balance issues] Objective:: Physical Exam General: Alert and oriented x3, no acute distress, pleasant and cooperative, [on room air] Lungs: Resps E/U, Symmetrical chest expansion, Eyes: PERRL Musculoskeletal: Flexion and extension of cervical and lumbar spine somewhat guarded secondary to pain, deep tendon reflexes normal, strength in upper and lower extremities [5/5], [abnormal gait noted] Neurological: 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 If patient is unable to have an MRI due to his stimulator we will move forward with a CT of lumbar spine to help discern pathology in regards to his urinary incontinence. I did discuss with the patient moving forward that we would wait on any injective therapies until after he was seen by his Ortho surgeon for his TFCC arthroscopy. Patient's been instructed to call the office if he has any issues prior to his next appointment. Dr. Mccord has reviewed this note and agrees with this plan of care. This note was dictated using voice recognition software and may contain errors or omissions [facility] History I have reviewed the patient's past medical history: Yes Medical History: Reports:: Anxiety, Coronary Artery Disease, Depression, Gastroesophageal Reflux Disease(GERD), Hyperlipidemia, Hypertension Denies:: Cancer, Diabetes Mellit
== END ==
PROVIDERS: PCP Internal Medicine Adolescent Medicine; Visit Provider Clinical Nurse Specialist Family Health
DX: M50.10 Cervical disc disorder with radiculopathy, unspecified cervical region (principal); M96.1 Postlaminectomy syndrome, not elsewhere classified
CPT/HCPCS: 99212; G0463

== ENCOUNTER → 2020-11-12 14:01 | Outpatient (CLI) | payer BC, SELFPAY ==
--- NOTE | 2020-11-12 14:04 | CT_ITS ---
PROCEDURE: CT LUMBAR SPINE WO CON CLINICAL HISTORY: BACK PAIN Lower pain Fell down the stairs 2 weeks ago COMPARISON: No exams were available for comparison TECHNIQUE: Axial images obtained with sagittal and coronal reformats. All CT scans at the facility use one or more dose reduction, viz: automated exposure control, ma/kV adjustment per patient size (including targeted exams where dose is matched to indication, i.e. head), or iterative reconstruction technique. FINDINGS: There is normal alignment. Epidural stimulator device is present entering the spinal canal at the T12-L1 region. There are 2 leads present. Normal alignment. No acute fracture or dislocation. L1-L2: Unremarkable. L2-L3: Unremarkable. L3-L4: Minimal bulging disc with mild bilateral foraminal narrowing. L4-5: Minimal bulging disc very slightly eccentric toward the right. Mild ligamentum and facet hypertrophy. Mild bilateral foraminal narrowing. L5-S1: Mild bulging disc. IMPRESSION: 1. No acute finding. 2. L3-L4: Minimal bulging disc with mild bilateral foraminal narrowing. 3. L4-5: Minimal bulging disc very slightly eccentric toward the right. Mild ligamentum and facet hypertrophy. Mild bilateral foraminal narrowing. 4. L5-S1: Mild bulging disc Dictated by: Guillermo Smith MD 11/13/2020 06:45 Guillermo Smith MD in [place] 11/13/2020 06:45
== END ==
PROVIDERS: PCP Internal Medicine Adolescent Medicine; Visit Provider Clinical Nurse Specialist Family Health
DX: M54.5 Low back pain (principal)
CPT/HCPCS: 72131

== ENCOUNTER → 2020-12-12 10:37 | Outpatient (POV) | payer BC, SELFPAY ==
[2020-12-12 10:57] VITALS: BP 138/89; PULSE 74; RESP 18; TEMP 36.8; O2SAT 98; BMI 31.1
--- NOTE | 2020-12-12 12:42 | HMH.PAINSOAP ---
[facility] Pain Management SOAP Note Subjective:: Patient is a pleasant 45-year-old white male who presents today for follow-up. Patient had a right wrist surgery which he states is unsuccessful. Patient states that he is now getting 50% relief from his neurostimulator. Patient main complaint and pain is in his neck and his arms. Patient has tried and failed injective therapy along with surgical intervention. Patient no longer has any surgical options. We discussed putting an additional stimulator lead up in his cervical spine to help with its pain and radicular symptomology. He is agreeable he rates his pain a 6 out of 10. Patient is having less urological and bowel issues. We did review his CT scan together. ROS General: no recent weight change, no fever, no sleep disturbances Respiratory: no cough, no shortness of air, no recurring pulmonary infections Cardiovascular/Peripheral Vascular: No chest pain, No palpitations, no edema, no shortness of breath. Gastrointestinal: no new onset incontinence, normal bowel movements reported Genitourinary: no new onset incontinence Musculoskeletal: Neck pain, arm pain Psychiatric: normal mood/ affect Neurological: [denies new onset weakness in extremities], [denies new onset balance issues] Objective:: Physical Exam General: Alert and oriented x3, no acute distress, pleasant and cooperative, [on room air] Lungs: Resps E/U, Symmetrical chest expansion, Eyes: PERRL Musculoskeletal: Flexion and extension of lumbar and cervical spine somewhat guarded secondary to pain, deep tendon reflexes normal, strength in upper and lower extremities [5/5], [abnormal gait noted] Neurological: speech clear, senior living advisor equal, no gross sensory deficits Assessment:: Postlaminectomy syndrome cervical spine, degenerative disc disease and radiculopathy. Plan:: We will move forward with authorization to place to cervical [employer] leads and utilize a same generator. We will call the patient once we have information in regards to this process. Dr. Mccord has reviewed this note and agrees with this plan of care. This note was dictated using voice recognition software and may contain errors or omissions [facility] History I have reviewed the patient's past medical history: Yes Medical History: Reports:: Anxiety, Coronary Artery Disease, Depression, Gastroesophageal Reflux Disease(GERD), Hyperlipidemia, Hypertension Denies:: Cancer, Diabetes Mellitus Type 1, Diabetes Mellitus Type 2, Internal Pacemaker, Lung Disease, MRSA, Seizures *Have you ever received a pneumonia vaccine?: Yes *Have you received a flu vaccine this season?: Yes Other Medical History: Reports: Other. Denies: Blood Transfusion Reaction Laterality Cases: Bilateral: Carpal Tunnel Release, Tonsillectomy Other Surgeries: Yes: EGD, Other. No: Pacemaker Amputation: No Fractures: Yes - *Social History Smoking Status: Current every day smoker Tobacco Type: cigarettes # Packs/Day (cigarettes): 2 #Yrs smoked (if former smoker): 30 Alcohol Intake: never Substance Use Type: denies use *Occupational Status:: unemployed Housing: house Household Members: spouse *Travel in the last 8 weeks: None - Psychiatric History Pschychiatric History:: Reports:: Anxiety, Depression Family Hx:: Hypertension
== END ==
PROVIDERS: PCP Internal Medicine Adolescent Medicine; Visit Provider Clinical Nurse Specialist Family Health
DX: M96.1 Postlaminectomy syndrome, not elsewhere classified (principal); M50.10 Cervical disc disorder with radiculopathy, unspecified cervical region
CPT/HCPCS: 99212; G0463

== ENCOUNTER → 2021-01-02 08:39 | Outpatient (POV) | payer BC, SELFPAY ==
[2021-01-02 08:56] VITALS: BP 138/78; PULSE 65; RESP 18; O2SAT 98; BMI 32.5
--- NOTE | 2021-01-02 09:28 | HMH.PAINSOAP ---
[facility] Pain Management SOAP Note Subjective:: Is a 45-year-old white male who presents today for follow-up. Patient was denied per their insurance for a cervical lead placement of a neurostimulator. His lower lumbar went neurostimulator is beneficial for him however he has multiple sources of pain. Patient has difficulty with falling along with bowel and bladder issues. We have discussed seeing both urology and neurology he is agreeable. He rates his pain a 7 out of 10 it is constant. He utilizes an assistive device for ambulation. Patient and I also discussed potential service animal. Patient is going to look into this option. ROS General: no recent weight change, no fever, no sleep disturbances Respiratory: no cough, no shortness of air, no recurring pulmonary infections Cardiovascular/Peripheral Vascular: No chest pain, No palpitations, no edema, no shortness of breath. Gastrointestinal: no new onset incontinence, normal bowel movements reported Genitourinary: Patient has incontinence at times Musculoskeletal: Back pain, leg pain, shoulder pain, arm pain, neck pain Psychiatric: normal mood/ affect Neurological: Weakness bilateral lower extremities, [denies new onset balance issues] Objective:: Physical Exam General: Alert and oriented x3, no acute distress, pleasant and cooperative, [on room air] Lungs: Resps E/U, Symmetrical chest expansion, Eyes: PERRL Musculoskeletal: Flexion and extension of the cervical and lumbar spine somewhat guarded secondary to pain, deep tendon reflexes normal, strength in upper and lower extremities [5/5], [abnormal gait noted] Neurological: speech clear, livestock nutrition territory manager equal, no gross sensory deficits Assessment:: Degenerative disc disease lumbar spine lumbar radiculopathy, postlaminectomy syndrome cervical spine. Plan:: I will follow up with the patient in several months reassess his symptoms at that time we will make a recommendation for him to go to both urology and neurology. He has been instructed to call the office if he has any issues prior to his next appointment. Dr. Mccord has reviewed this note and agrees with this plan of care. This note was dictated using voice recognition software and may contain errors or omissions [facility] History I have reviewed the patient's past medical history: Yes Medical History: Reports:: Anxiety, Coronary Artery Disease, Depression, Gastroesophageal Reflux Disease(GERD), Hyperlipidemia, Hypertension Denies:: Cancer, Diabetes Mellitus Type 1, Diabetes Mellitus Type 2, Internal Pacemaker, Lung Disease, MRSA, Seizures *Have you ever received a pneumonia vaccine?: No *Have you received a flu vaccine this season?: No Other Medical History: Reports: Other. Denies: Blood Transfusion Reaction Laterality Cases: Bilateral: Carpal Tunnel Release, Tonsillectomy Other Surgeries: Yes: EGD, Other. No: Pacemaker Amputation: No Fractures: Yes - *Social History Smoking Status: Current every day smoker Tobacco Type: cigarettes # Packs/Day (cigarettes): 2 #Yrs smoked (if former smoker): 30 Alcohol Intake: never Substance Use Type: denies use *Occupational Status:: other Housing: house Household Members: spouse *Travel in the last 8 weeks: None - Psychiatric History Pschychiatric History:: Reports:: Anxiety, Depression Family Hx:: Hypertension
== END ==
PROVIDERS: Visit Provider Clinical Nurse Specialist Family Health
DX: M51.16 Intervertebral disc disorders with radiculopathy, lumbar region (principal); M96.1 Postlaminectomy syndrome, not elsewhere classified
CPT/HCPCS: 99212; G0463

== ENCOUNTER → 2021-01-22 10:33 | Outpatient (CLI) | payer BC, SELFPAY ==
[2021-01-22 12:48] LABS: Prostate Specific Ag Screen 0.7 ng/ml (0.0-4.0)
== END ==
PROVIDERS: Visit Provider Urology
DX: Z12.5 Encounter for screening for malignant neoplasm of prostate (principal)
CPT/HCPCS: 36415; G0103

== ENCOUNTER 2021-01-24 15:00 | Outpatient (RCR) | payer BC, SELFPAY | END 2021-01-24 15:05 | disposition home or self-care (01) | LOC: OT 15:00 | PROVIDERS: Visit Provider Orthopaedic Surgery | DX: M25.531 Pain in right wrist (principal) | CPT/HCPCS: 97014; 97140; 97165; 97530; G0283 ==

== ENCOUNTER → 2021-02-20 08:27 | Outpatient (POV) | payer BC, SELFPAY ==
[2021-02-20 08:41] VITALS: BP 129/82; PULSE 70; RESP 18; O2SAT 96; BMI 31.7
--- NOTE | 2021-02-20 09:04 | HMH.PAINSOAP ---
[facility] Pain Management SOAP Note Subjective:: Patient is a 45-year-old white male who presents today for follow-up. He is being seen in the clinic for degenerative disc disease lumbar spine with lumbar radicular symptoms along with postlaminectomy syndrome cervical spine. Patient has a spinal cord stimulator in place for his lumbar spine. Approval was sought for the patient to get cervical leads, but was denied by his insurance. According to the patient, his insurance reported that there was no medical necessity for the cervical leads. He continues to have neck pain radiating into his right shoulder as well as low back pain with radiation into his right leg with numbness and tingling in his right leg. He says there. The point he cannot feel his right leg. He says that his leg feels like a rubber sensation . He is having pressure in his lower back. He does say his stimulator gives him 40 to 50% relief. He was referred to urology and neurology. Patient had a change in bladder habit, with incontinence. This was new onset for him. His consult with urology was unremarkable according to the patient. He is scheduled to undergo nerve conduction studies with neurology at a later date this year. Patient has brought in a medical necessity letter for a handicapped decal as well as for service dog. He has discussed this was prior providers in the clinic and does need the forms filled out today. He rates his pain a 7 out of 10. Patient I had a long discussion that we are limited in options in the clinic. He is not open to opiates for intrathecal therapy. At this point, and given his imaging, we are limited in options. Unfortunately, his CT scan does not show any type of pathology indicative of referral to neurosurgery. He says he will follow up with neurology before seeing us again. Review of Systems General: No recent weight changes, no fever, no sleep disturbances Respiratory: No cough, no shortness of air, no recurring pulmonary infections Cardiovascular/peripheral vascular: No chest pain, no palpitations, no edema, no shortness of breath Gastrointestinal: No new onset incontinence, normal bowel movements reported Genitourinary: No new onset incontinence Musculoskeletal: Neck pain, right shoulder pain, low back pain, right leg pain with numbness and tingling Psychiatric: Normal mood/affect Neurological: [Denies weakness in extremities], [denies balance issues] Objective:: Physical exam General: Alert and oriented x3, no acute distress, pleasant and cooperative, [on room air] Lungs: Respirations even and unlabored, symmetrical chest expansion Eyes: PERRL Musculoskeletal: Flexion and extension of cervical and lumbar spine somewhat guarded secondary to pain, deep tendon reflexes normal, strength in upper and lower extremities [5/5], [abnormal gait noted] Neurological: Speech clear, career services coordinator equal, no gross sensory deficit Assessment:: Degenerative disc disease cervical and lumbar spine with cervical lumbar radiculopathy symptoms, postlaminectomy syndrome cervical spine Plan:: We will sign the forms for the patient's decal as well as his service dog at the request of the patient. We will see him back in 3 months after his neurology follow-up. We are limited in options for the patient at this point. He says he will continue his follow-up with Dr. Donahue as well to discuss a further plan of care. Patient has been instructed to contact the clinic with any concerns before the next appointment. Dr. Mccord has reviewed this note and agrees with this plan of care. This note was dictated using voice recognition software and make contain errors or omissions. [facility] History I have reviewed the patient's past medical history: Yes Medical History: Reports:: Anxiety, Coronary Artery Disease, Depression, Gastroesophageal Reflux Disease(GERD), Hyperlipidemia, Hypertension Denies:: Cancer, Diabetes Mellitus Type 1, Diabetes Mellitus Type 2, Internal Pac
== END ==
PROVIDERS: PCP Internal Medicine Adolescent Medicine; Visit Provider Clinical Nurse Specialist Family Health
DX: M51.36 Other intervertebral disc degeneration, lumbar region (principal); M50.10 Cervical disc disorder with radiculopathy, unspecified cervical region; M96.1 Postlaminectomy syndrome, not elsewhere classified
CPT/HCPCS: 99212; G0463

== ENCOUNTER → 2021-04-08 11:55 | Outpatient (CLI) | payer BC, SELFPAY ==
--- NOTE | 2021-04-08 12:07 | XR_ITS ---
PROCEDURE: XR LUMBAR SPINE 2-3V CLINICAL INDICATION: fall Pain COMPARISON: MR MR THORACIC SPINE WO CON from 09/13/2019 RF XR PAIN MGT INJ from 10/18/[address] LUMBAR SPINE WO CON from 11/12/2020 FINDINGS: Normal alignment. No acute fracture or dislocation. Minimal anterior superior spurring at L3. Spinal stimulator is present. The 2 leads inter the epidural region at T12-L1. The superior aspect of the leads are not visible on the images which cover up 2 T9-T10. There is straightening of the lumbar lordosis which could be due to patient positioning or muscle spasm. There is slight decrease in the L4-5 disc space suggesting mild degenerative disc disease. IMPRESSION: No acute finding. The cephalad extent of the spinal leads are not visible on this exam. Thoracic spine images needed if the upper portion of the leads are to be examined. Dictated by: Guillermo Smith MD 04/08/2021 13:29 Guillermo Smith MD in [place] 04/08/2021 13:29
== END ==
PROVIDERS: PCP Internal Medicine Adolescent Medicine; Visit Provider Specialist
DX: M47.816 Spondylosis without myelopathy or radiculopathy, lumbar region (principal); W19.XXXA Unspecified fall, initial encounter
CPT/HCPCS: 72100

== ENCOUNTER → 2021-05-26 09:13 | Outpatient (POV) | payer BC, SELFPAY ==
[2021-05-26 09:28] VITALS: BP 145/87; PULSE 66; RESP 18; O2SAT 96; BMI 31.0
--- NOTE | 2021-05-26 10:14 | HMH.PAINSOAP ---
[facility] Pain Management SOAP Note Subjective:: Patient is a 45-year-old white male who presents today for follow-up. He did meet with [employer]CS service liaison representative for reprogramming. Patient says that he has been having recent falls. He fell 3 times on February 22. He has followed up with neurology Dr. Sagastume as well as Dr. Shanks for urinary incontinence. The patient is treated in the clinic for degenerative disc disease cervical and lumbar spine with cervical and lumbar radicular symptoms. He is also postlaminectomy syndrome cervical spine. The patient is complaining of severe neck pain with radiation onto the right side of the neck, right ear, right shoulder with burning sensation into the right arm. He reports with coughing and sneezing to have severe radicular pain into the right shoulder and right leg. Patient symptoms are primarily on the right side. He says that his right leg is giving out . He is having hot spots to the posterior area of his thigh. He says that the area is not hot to palpation, however, it is a much deeper sensation. He is also having low back pain with radiation into the right leg. The patient's right foot is going numb. He is having changes in bladder and says that he is having more frequent incontinence. He did see Dr. Shanks who felt the patient symptoms to be a result of his spine. He is also having issues with ejaculation. This is new onset for him as well. Patient is very concerned that due to his frequent falls and changes in bladder and sex drive that it is due to his back. The patient is having difficulty lying on his back. He has been lying on his sides, more specifically the left side, and is now having severe rib pain which he feels is radicular in nature from his thoracic spine. The patient symptoms are progressively worsening. We did seek approval to have leads placed with his SCS for cervical spine stimulation, but was denied by his insurance company. Patient's pain is a 7 out of 10 today. He is using a cane for ambulation today. His symptoms are progressively worsening to the point that he is very concerned. Patient is not open to opiates or intrathecal therapy. Unfortunately, we are very limited in options. The patient has had imaging in the past at [facility], however shortly after had imaging done at [facility]. Comparison of imaging was notable. Patient says that the imaging at was very specific and did note more pathology in comparison to the scans performed within [facility]. Due to worsening symptoms and changes, the patient is requesting imaging to be performed at . He has followed up with Dr. Sagastume who did send the patient for nerve conduction studies which were unremarkable. Review of Systems General: No recent weight changes, no fever, no sleep disturbances Respiratory: No cough, no shortness of air, no recurring pulmonary infections Cardiovascular/peripheral vascular: No chest pain, no palpitations, no edema, no shortness of breath Gastrointestinal: No new onset incontinence, normal bowel movements reported Genitourinary: No new onset incontinence Musculoskeletal: Neck pain with radiation into right ear and right shoulder with burning sensation into the right arm, mid back pain with radiation into bilateral ribs, low back pain with radiation into right foot with numbness and tingling, shooting pain into right arm and leg with coughing or sneezing Psychiatric: [Normal mood/affect] Neurological: Right leg giving out, hot spots to posterior thigh Objective:: Physical exam General: Alert and oriented x3, no acute distress, pleasant and cooperative, [on room air] Lungs: Respirations even and unlabored, symmetrical chest expansion Eyes: PERRL Musculoskeletal: Visual examination of spine?flexion and extension of cervical, thoracic, lumbar [spine] somewhat guarded secondary to pain, antalgic gait noted, use of cane with ambulation Neurological: Speech clear,
== END ==
PROVIDERS: Visit Provider Clinical Nurse Specialist Family Health
DX: N39.41 Urge incontinence (principal); N53.19 Other ejaculatory dysfunction; M50.10 Cervical disc disorder with radiculopathy, unspecified cervical region; M51.16 Intervertebral disc disorders with radiculopathy, lumbar region; M54.6 Pain in thoracic spine
CPT/HCPCS: 99212; G0463

== ENCOUNTER → 2021-06-24 10:41 | Outpatient (POV) | payer BC, SELFPAY ==
[2021-06-24 11:17] VITALS: BP 132/84; PULSE 64; RESP 18; O2SAT 96; BMI 30.9
--- NOTE | 2021-06-24 12:02 | HMH.PAINSOAP ---
[facility] Pain Management SOAP Note Subjective:: Patient is a 45-year-old white male who presents today for follow-up to review his CT scan of cervical, thoracic, and lumbar spine. Patient does have an SCS device in place that gives him up to 40% relief. He was unable to undergo MRI due to his SCS device. Patient is having pain in his neck as well as his low back area. He is having frequent falls. He has seen Dr. Sagastume with neurology for nerve conduction studies. He has had a cervical fusion with Dr. Ya in the past. The patient is having pain in his neck with radiation into the right side of the neck right ear, right shoulder and a burning sensation into his right arm. He also is having difficulty with his right low back area and right leg giving out . Patient does have hot spots to the posterior area of his thigh. The patient's right foot is going numb. He is having changes in bladder and has seen Dr. Shanks for urinary incontinence. He is also having changes in his sex drive due to his neck and back pain. He is having difficulty lying on his back due to pain. He is also having pain lying on bilateral sides and has now developed severe rib pain which feels radicular nature from his thoracic spine. His symptoms are progressively worsening. While he does get 40% relief with his SCS device, he is interested in intrathecal therapy for long-term pain relief. He did undergo imaging of his cervical, thoracic, lumbar spine?CT scan. He would like to review his scans today. Patient's pain is an 8 out of 10. He is using a cane for ambulation. The patient's pain is affecting his quality of life. He is cared for 2 children and is having a great deal of pain and difficulty doing normal activity. He has difficulty sitting for prolonged periods, standing for prolonged periods, or walking for prolonged periods. Patient does have to reposition often to get any relief. He is in a great deal of pain today. Review of Systems General: No recent weight changes, no fever, no sleep disturbances Respiratory: No cough, no shortness of air, no recurring pulmonary infections Cardiovascular/peripheral vascular: No chest pain, no palpitations, no edema, no shortness of breath Gastrointestinal: No new onset incontinence, normal bowel movements reported Genitourinary: History of incontinence, seen by Dr. Shanks Musculoskeletal: Neck pain with radiation into right upper extremity, low back pain with radiation into right lower extremity Psychiatric: [Normal mood/affect] Neurological: Frequent falls due to right leg weakness and numbness Objective:: Physical exam General: Alert and oriented x3, no acute distress, pleasant and cooperative Lungs: Respirations even and unlabored, symmetrical chest expansion Eyes: PERRL Musculoskeletal: Flexion and extension of cervical and lumbar [spine] somewhat guarded secondary to pain, [antalgic gait noted], cane used for ambulation Neurological: Speech clear, no gross sensory deficit Assessment:: Degenerative disc disease cervical spine with cervical radiculopathy symptoms, degenerative disc disease lumbar spine with lumbar radiculopathy symptoms Plan:: Patient and I did discuss options in the clinic today. He understands that we can only offer, at this point, intrathecal therapy as an option for pain management. The patient does have an SCS system in place that gives him 40% relief. He is interested in proceeding with possible intrathecal pain pump trial. The patient is not on any anticoagulation therapy. He is uncertain if he would like to proceed with bupivacaine or opiates in the pump. He will require a repeat psychological evaluation, as his previous evaluation is more than a-year-old. He has tried and failed conservative therapies of physical therapy for more than 6 weeks in the past along with continued and limited home stretching due to pain. He continues with ice and heat therapies. He does take o
== END ==
PROVIDERS: Visit Provider Clinical Nurse Specialist Family Health
DX: M50.10 Cervical disc disorder with radiculopathy, unspecified cervical region (principal); M51.16 Intervertebral disc disorders with radiculopathy, lumbar region
CPT/HCPCS: 99212; G0463

== ENCOUNTER → 2021-07-10 08:35 | Outpatient (CLI) | payer BC, SELFPAY ==
--- NOTE | 2021-07-10 08:38 | CT_ITS ---
Procedure: CT ANGIO ABDOMEN CLINICAL HISTORY: AORTIC CALCIFICATIONS COMPARISON: No exams were available for comparison TECHNIQUE: IV Contrast: 100ml Isovue 370 Axial images obtained with sagittal and coronal reformats. All CT scans at the facility use one or more dose reduction, viz: automated exposure control, ma/kV adjustment per patient size (including targeted exams where dose is matched to indication, i.e. head), or iterative reconstruction technique. FINDINGS: The exam is performed without and with contrast. No aortic aneurysm. No iliac artery aneurysm. No stenosis apparent. Scattered eccentric calcifications are present in the distal abdominal aorta and common iliac arteries. The SMA and celiac are unremarkable. ADRIANO is patent. No renal artery stenosis. There are 2 right renal arteries the smaller of the 2 is most cephalad and supplies the upper pole of the right kidney. Other findings include mild hepatomegaly at 23 cm transverse with fatty liver. Mild mucosal thickening involves the distal aspect of the esophagus. The pancreas, adrenal glands, and kidneys have an unremarkable appearance. No intestinal obstruction or free air. There is an epidural stimulator device present entering the spinal canal at T12-L1 and projecting superiorly at the T8-T9 level with the most cephalad component not visible on the images. There is a small umbilical hernia containing fat. IMPRESSION: 1. Mild atherosclerotic calcification of the aortoiliac vessels without aneurysm or stenosis. 2. Mild hepatomegaly with fatty liver Dictated by: Guillermo Smith MD 07/11/2021 10:24 Guillermo Smith MD in [place] 07/11/2021 10:24
== END ==
PROVIDERS: PCP Internal Medicine Adolescent Medicine; Visit Provider Internal Medicine Adolescent Medicine
DX: I70.0 Atherosclerosis of aorta (principal)
CPT/HCPCS: 74175; Q9967

== ENCOUNTER → 2021-09-13 09:28 | Outpatient (CLI) | payer BC, SELFPAY | PROVIDERS: Visit Provider Surgery | DX: Z01.812 Encounter for preprocedural laboratory examination (principal); Z11.52 Encounter for screening for COVID-19; Z13.810 Encounter for screening for upper gastrointestinal disorder | CPT/HCPCS: C9803; U0003; U0005 ==

== ENCOUNTER 2021-09-16 09:45 | Day surgery (SDC) | payer BC, SELFPAY ==
[2021-09-12 15:42] VITALS: BMI 31.1
[2021-09-16 10:04] VITALS: BP 140/87; PULSE 65; RESP 16; TEMP 36.6; O2SAT 97
[2021-09-16 11:05] VITALS: O2SAT 97
--- NOTE | 2021-09-16 11:13 | [facility].SCOPE ---
- Procedure: Date: 09/16/21 Patient Date of :: 1975 Procedure Performed:: Esophagogastroduodenoscopy with biopsy Indications:: Gastroesophageal reflux Nausea Abdominal bloating Dysphagia Performing Provider:: Jeramy Galeas MD Referring Provider:: . Sedation:: Monitored anesthesia care Procedure:: After informed consent was obtained the patient was taken to the endoscopy suite. Sedation ensued after the patient was transferred to the left lateral decubitus position. Pulse, blood pressure, and oxygen saturation were monitored throughout the procedure. The endoscope was advanced beyond the duodenal bulb. Retroflexion within the gastric lumen was accomplished. The gastroscope was carefully removed and the patient was transferred to recovery in stable condition. Please see findings and specimens below for detail. Findings:: Gastroesophageal junction 40 cm Mild patchy gastritis Specimens:: Antral biopsy Recommendations:: Follow-up pathology Consider repeat barium swallow (patient is status post EGD in 02/2019 followed by barium swallow. No significant abnormality noted on barium swallow). Consider gastric emptying scan Consider gastroenterology evaluation Complications:: No immediate Estimated blood obtained (mL): 1
[2021-09-16 11:15] VITALS: BP 100/62; PULSE 64; RESP 16; TEMP 36.3; O2SAT 95
--- NOTE | 2021-09-16 11:17 | P.PN_ITS ---
[facility] Anesthesia Checklist - Structural Data Admitted From: Home Planned Operative Procedure/s: egd Consent for Planned Operative Procedure(s) Verified: Yes - Additional verifications Anesthesia Reactions: No Hx Blood Transfusions: No Blood Transfusion Reaction: No - Airway Assessment C-Spine Mobility Assessed: Yes TMJ Mobility Assessed: Yes Dentition: Edentulous - Neurological Assessment Level of Consciousness: Awake, Alert, Appropriate - Anesthesia Plan Anesthesia Risk discussed: Yes Anesthesia Plan: Verified ASA Class: III Anesthesia Type: MAC [facility] History I have reviewed the patient's past medical history: Yes Medical History: Reports:: Anxiety, Coronary Artery Disease, Depression, Gastroesophageal Reflux Disease(GERD), Hyperlipidemia, Hypertension Denies:: Cancer, Diabetes Mellitus Type 1, Diabetes Mellitus Type 2, Internal Pacemaker, Lung Disease, MRSA, Seizures *Have you ever received a pneumonia vaccine?: No *Have you received a flu vaccine this season?: No Other Medical History: Reports: Arthritis, Other. Denies: Blood Transfusion Reaction Anesthesia experience/problems:: none Laterality Cases: Bilateral: Carpal Tunnel Release, Tonsillectomy Other Surgeries: Yes: No Previous Surgery, EGD, Other. No: Pacemaker Amputation: No Fractures: Yes - *Social History Last grade of school completed: 11th or 12th Smoking Status: Current every day smoker Tobacco Type: cigarettes # Packs/Day (cigarettes): 1 #Yrs smoked (if former smoker): 30 Alcohol Intake: never Substance Use Type: denies use *Occupational Status:: unemployed Housing: house Household Members: none *Travel in the last 8 weeks: None - Psychiatric History Pschychiatric History:: Reports:: Anxiety, Depression Family Hx:: Hypertension, Cancer, Asthma, Hyperlipidemia
[2021-09-16 11:25] VITALS: BP 100/63; PULSE 63; RESP 16; O2SAT 95
[2021-09-16 11:35] VITALS: BP 103/72; PULSE 57; RESP 16; O2SAT 95
[2021-09-16 11:45] VITALS: BP 103/67; PULSE 66; RESP 16; O2SAT 96
== END 2021-09-16 11:47 | disposition home or self-care (01) ==
LOC: OUTP 09:48
PROVIDERS: PCP Internal Medicine Adolescent Medicine; Visit Provider Surgery
PROC: 0DJ08ZZ Inspection of Upper Intestinal Tract, Via Natural or Artificial Opening Endoscopic (ICD-10-PCS; CPT 43235; principal; 2021-09-16 11:00)
DX: K29.60 Other gastritis without bleeding (principal); K21.9 Gastro-esophageal reflux disease without esophagitis; R11.0 Nausea; R13.10 Dysphagia, unspecified; R14.0 Abdominal distension (gaseous); F41.9 Anxiety disorder, unspecified; I25.10 Atherosclerotic heart disease of native coronary artery without angina pectoris; E78.5 Hyperlipidemia, unspecified; I10 Essential (primary) hypertension; M19.90 Unspecified osteoarthritis, unspecified site; Z72.0 Tobacco use; Z80.9 Family history of malignant neoplasm, unspecified
CPT/HCPCS: 43239

== ENCOUNTER → 2022-03-07 09:32 | Outpatient (CLI) | payer BC, SELFPAY ==
[2022-03-07 10:29] LABS: Amphetamine/Metha Screen,Urine Negative ng/ml (<1000); Chloride 104 mmol/L (98-107); Potassium 4.6 mmoL/L (3.5-5.1); Sodium 137 mmol/L (136-145)
[2022-03-07 10:30] LABS: Barbiturates Screen,Urine Negative ng/ml (<200); Benzodiazepines Screen,Urine Negative ng/ml (<200)
[2022-03-07 10:31] LABS: Alanine Aminotransferase 51 U/L (12-78); Aspartate Amino Transferase 35 U/L (17-59); Blood Urea Nitrogen 17 mg/dl (9-20); Cannabinoid Screen,Urine Negative ng/ml (<50); Estimated Glomerular Filt Rate 92 ml/min (>60); GFR (African American) 111 ML/MIN (>60)
[2022-03-07 10:32] LABS: Albumin Level 4.6 g/dl (3.5-5.0); Albumin/Globulin Ratio 1.8 (1.1-1.8); Alkaline Phosphatase 49 U/L (38-126); Anion Gap 11.6 mEq/L (5-15); Bilirubin,Total 0.9 mg/dl (0.2-1.3); Calcium 9.2 mg/dl (8.4-10.2); Carbon Dioxide 26 mmol/L (22.0-30.0); Cholesterol 113 mg/dl (140-200); Cocaine Screen,Urine Negative ng/ml (<300); Globulin 2.6 g/dL (1.3-3.2); Glucose 192 mg/dl (74-100); Methadone Screen,Urine Negative ng/ml (<300); Total Protein,Serum 7.2 g/dl (6.3-8.2); Triglycerides 164 mg/dl (30-150); VLDL Cholesterol 33 mg/dL (0-40)
[2022-03-07 10:33] LABS: Chol/HDL Ratio 3.9 (1-3.5); HDL Cholesterol 29 mg/dl (40-60); Opiate Screen,Urine Negative ng/ml (<300)
[2022-03-07 10:34] LABS: Phencyclidine Screen,Urine Negative ng/ml (<25)
[2022-03-07 10:43] LABS: Direct LDL Cholesterol 60.44 mg/dL (100-129)
[2022-03-07 10:49] LABS: 25-OH Vitamin D, Total 38.3 ng/mL (30-100)
[2022-03-07 11:01] LABS: Hemoglobin A1C 5.7 % (4.0-6.0)
[2022-03-07 11:03] LABS: Thyroid Stimulating Hormone 1.98 uIU/mL (0.465-4.68)
[2022-03-07 11:44] LABS: Vitamin B12 437 pg/mL (239-931)
[2022-03-09 08:45] LABS: Creatinine,Urine Random 143 mg/dL (Not Estab.); Microalbumin/Creatinine Ratio 5.2
== END ==
PROVIDERS: PCP Internal Medicine Adolescent Medicine; Visit Provider Internal Medicine Adolescent Medicine
DX: E03.9 Hypothyroidism, unspecified (principal); E78.5 Hyperlipidemia, unspecified; E11.9 Type 2 diabetes mellitus without complications; G60.9 Hereditary and idiopathic neuropathy, unspecified; M17.9 Osteoarthritis of knee, unspecified; E66.9 Obesity, unspecified; Z68.32 Body mass index [BMI] 32.0-32.9, adult; Z79.899 Other long term (current) drug therapy
CPT/HCPCS: 36415; 80053; 80061; 80305; 82043; 82306; 82570; 82607; 83036; 84443

== ENCOUNTER 2024-06-23 08:58 | Outpatient (CLI) | payer BC, SELFPAY ==
--- NOTE | 2024-06-23 09:07 | XR_ITS ---
PROCEDURE INFORMATION: Exam: XR Lumbosacral Spine Exam date and time: 06/23/2024 9:15 AM Age: 48 years old Clinical indication: Low back pain; Additional info: Lower back pain TECHNIQUE: Imaging protocol: Radiologic exam of the lumbosacral spine. Views: 4 or 5 views. COMPARISON: CR XR LUMBAR SPINE MIN 4V 06/23/2024 9:15 AM FINDINGS: Tubes, catheters and devices: Neurostimulator terminates in the thoracic canal Bones/joints: There is no evidence of acute fracture.There is no evidence of malalignment or dislocation. Intervertebral disc spaces are maintained. Minimal anterior osteophyte formation Soft tissues: Unremarkable. IMPRESSION: 1. There is no evidence of acute fracture.There is no evidence of malalignment or dislocation. 2. Intervertebral disc spaces are maintained.
--- NOTE | 2024-06-23 09:07 | XR_ITS ---
PROCEDURE INFORMATION: Exam: XR Left Shoulder Exam date and time: 06/23/2024 9:15 AM Age: 48 years old Clinical indication: Pain; Shoulder; Left TECHNIQUE: Imaging protocol: Radiologic exam of the left shoulder. Views: 2 or more views. COMPARISON: CR XR CERVICAL SPINE 5V 12/08/2019 3:25 PM FINDINGS: Bones/joints: There is no evidence of acute fracture.There is no evidence of malalignment or dislocation. Soft tissues: Normal. IMPRESSION: There is no evidence of acute fracture.There is no evidence of malalignment or dislocation.
== END 2024-06-23 23:59 | disposition home or self-care (01) ==
PROVIDERS: PCP Internal Medicine Adolescent Medicine; Visit Provider Internal Medicine Adolescent Medicine
DX: M25.512 Pain in left shoulder (principal); M54.50 Low back pain, unspecified
CPT/HCPCS: 72110; 73030